=== PATIENT | female | born 1945 | race Caucasian/White ===

== ENCOUNTER 2021-08-04 14:41 | Outpatient (REF) | payer MEDICARE, SELFPAY ==
--- NOTE | ~2021-08-04 | XR_ITS ---
EXAMINATION: XR CHEST CLINICAL INFORMATION: COPD. COMPARISON: None. TECHNIQUE: 2 views of the chest were obtained. FINDINGS: There is no evidence of acute parenchymal disease, pneumothorax, or pleural effusion. Heart normal size. No evidence of pulmonary edema. Thoracic aortic calcification is identified. There is some degenerative spurring seen at multiple levels within the thoracic spine. XR/XR chest 2V IMPRESSION: No acute disease.
== END 2021-08-04 14:42 | disposition home or self-care (01) ==
LOC: HO.XRAY 14:41
PROVIDERS: PCP Registered Nurse; Visit Provider Internal Medicine
DX: J44.9 Chronic obstructive pulmonary disease, unspecified (principal); Z79.899 Other long term (current) drug therapy; Z87.891 Personal history of nicotine dependence
CPT/HCPCS: 71046; 99202

== ENCOUNTER 2021-09-08 13:48 | Outpatient (REF) | payer MEDICARE, SELFPAY ==
--- NOTE | 2021-09-08 17:23 | PFT_ITS ---
Forced vital capacity 64%, FEV1 44%, FEV1/FVC ratio is 51. [id number] 19% and MVV is 38%. Post bronchodilator therapy, there is significant improvement in flow volumes. Total lung capacity 87% and residual volume 117%. Diffusion capacity 29. CONCLUSION: These reserves are consistent with very severe obstructive airway disorder. There is significant response to bronchodilator therapy. These findings are indicative of asthma/COPD overlap syndrome. Clinical correlation is recommended. MD CRESCENCIO Sommer/VINI / [phone]
== END 2021-09-08 13:49 | disposition home or self-care (01) ==
LOC: HO.RESP 13:48
PROVIDERS: PCP Registered Nurse; Visit Provider Internal Medicine
DX: J44.9 Chronic obstructive pulmonary disease, unspecified (principal); R06.00 Dyspnea, unspecified; Z87.891 Personal history of nicotine dependence
CPT/HCPCS: 94060; 94727; 94729; 99212

== ENCOUNTER 2021-09-10 14:58 | Outpatient (REF) | payer MEDICARE, SELFPAY ==
[2021-09-10 16:32] LABS: Folate 19.8 ng/mL (> or = 4.0); Vitamin B12 198 pg/mL (200-900)
[2021-09-15 16:56] LABS: Vitamin D 25-OH, D2 <4 ng/mL; Vitamin D 25-OH, D3 37 ng/mL; Vitamin D 25-OH, Total 37 ng/mL (30-100)
== END 2021-09-10 14:59 | disposition home or self-care (01) ==
LOC: HO.LAB 14:58
PROVIDERS: PCP Registered Nurse; Visit Provider Nurse Practitioner Family
DX: K58.2 Mixed irritable bowel syndrome (principal); R14.0 Abdominal distension (gaseous); R19.7 Diarrhea, unspecified; E55.9 Vitamin D deficiency, unspecified; Z12.11 Encounter for screening for malignant neoplasm of colon
CPT/HCPCS: 36415; 82306; 82607; 82746; 99202; 99212

== ENCOUNTER → 2021-11-10 10:20 | Outpatient (BNVA) | payer MEDICARE, SELFPAY | PROVIDERS: PCP Registered Nurse; Visit Provider Internal Medicine | DX: J44.9 Chronic obstructive pulmonary disease, unspecified (principal) | CPT/HCPCS: 99212 ==

== ENCOUNTER → 2021-11-12 10:43 | Outpatient (BNVA) | payer MEDICARE, SELFPAY | PROVIDERS: PCP Registered Nurse; Visit Provider Nurse Practitioner Family | DX: K58.2 Mixed irritable bowel syndrome (principal); R14.0 Abdominal distension (gaseous) | CPT/HCPCS: 99212 ==

== ENCOUNTER → 2022-02-11 09:09 | Outpatient (BNVA) | payer MEDICARE, SELFPAY | PROVIDERS: PCP Registered Nurse; Visit Provider Nurse Practitioner Family | DX: K58.1 Irritable bowel syndrome with constipation (principal); R14.0 Abdominal distension (gaseous) | CPT/HCPCS: 99212 ==

== ENCOUNTER → 2022-05-11 10:27 | Outpatient (BNVA) | payer MEDICARE, SELFPAY | PROVIDERS: PCP Registered Nurse; Visit Provider Internal Medicine | DX: J44.9 Chronic obstructive pulmonary disease, unspecified (principal); Z87.891 Personal history of nicotine dependence; Z79.899 Other long term (current) drug therapy | CPT/HCPCS: 99212 ==

== ENCOUNTER → 2022-08-12 10:02 | Outpatient (BNVA) | payer MEDICARE, SELFPAY | PROVIDERS: PCP Registered Nurse; Visit Provider Nurse Practitioner Family | DX: K58.1 Irritable bowel syndrome with constipation (principal); K59.01 Slow transit constipation; R14.0 Abdominal distension (gaseous) | CPT/HCPCS: 99212 ==

== ENCOUNTER 2022-11-09 10:57 | Outpatient (AMB) | payer MEDICARE, SELFPAY ==
--- NOTE | 2022-11-09 11:09 | A.OFFVIS_ITS ---
Intake Vital Signs 11/09/22 11:14 Height 5 ft Weight 117 lb BMI 22.8 BP 120/64 Blood Pressure Location Lt brachial Position Sitting Pulse 74 Pulse Source Pulse Oximeter Pulse Oximetry (%) 94 Oxygen Delivery Method Room Air Intake Visit Reasons: copd Intake Note: pt is here for follow up and states she is feeling ok but her inhaler in 42.00, she cannot afford this. Financial Business Analyst Required: No Allergies No Known Allergies Allergy (Verified 11/09/22 16:10) Medication List - Last Reconciled 11/09/22 by Manoj Bernal MD albuterol sulfate 90 mcg/actuation 2 puffs inhalation Q6H PRN calcium carbonate (Calcium) 600 mg PO DAILY cholecalciferol (vitamin D3) 50 mcg PO DAILY cyanocobalamin (vitamin B-12) 1,000 mcg PO DAILY docusate sodium 100 mg PO BEDTIME fluticasone propion-salmeterol 250-50 mcg/dose (Wixela Inhub) 1 inh inhalation BID 30 days folic acid 1 mg PO DAILY garlic 500 mg PO DAILY labetalol 200 mg PO DAILY levothyroxine 50 mcg PO DAILY methylcellulose (laxative) (Citrucel) 500 mg PO DAILY sennosides (Evac-U-Gen (sennosides)) 8.6 mg PO BEDTIME Do you need a note to return to daycare/school/sports/work: No HPI copd HPI Details THIS 77 YEARS OLD VERY PLEASANT FEMALE IS HERE FOR FOLLOW-UP. SHE HAS MILD TO MODERATE DEGREE OF CHRONIC OBSTRUCTIVE PULMONARY DISEASE. BREATHING HAS REMAINED STABLE WITH MILD INTERMITTENT COUGH, AND SHE GETS SHORT OF BREATH ON WALKING FAST OR. CLIMBING STAIRS SHE IS USING AIRDUO 1 INHALATION B.I.D.. THE MAIN ISSUE IS THE HICKEY ( CO-PAYMENT) AND SHE IS LOOKING FOR A CHEAPER BRAND OR SOME OTHER WAY TO CUT DOWN THE COST. SHE IS NONSMOKER. [facility] Social History Household Members: None Alcohol intake: never Patient Tobacco Use Status: Former Tobacco user Review of Systems Const All systems reviewed & are unremarkable except as noted in HPI and below Eyes Reports no additional complaints ENT Reports no additional complaints Card Denies chest pain, Denies irregular heart rhythm and Denies leg edema Resp Reports as per HPI GI Reports no additional complaints Reports no additional complaints Skin/Breast Reports system reviewed and no additional complaints, except as documented Neuro Reports no additional complaints Psych Reports no additional complaints Physical Exam Vital Signs: Last Vital Signs Pulse 74 11/09/22 11:14 BP 120/64 11/09/22 11:14 Pulse Ox 94 11/09/22 11:14 Oxygen Delivery Method Room Air 11/09/22 11:14 BMI result Body Mass Index 22.8 Const General: healthy appearing, comfortable, no acute distress, alert and awake Orientation/consciousness: patient oriented x3 HEENT Head: Yes normal to inspection General nose exam: No nasal polyps present and No nasal discharge present Face and sinus: Yes sinuses nontender Mouth: oropharynx normal Teeth and gingiva: dentures (Upper dentures) Throat: Yes posterior oropharynx normal Eyes General: appearance normal, both eyes and all related structures Neck Neck: Yes normal visual inspection, Yes no lymphadenopathy, Yes trachea midline and Yes no JVD Thyroid: Thyroid normal Chest Chest palpation & inspection: normal inspection of the chest, normal palpation of entire chest wall and no tenderness Resp Other: Percussion note is resonant, breath sounds are distant but equal on both sides with prolonged expiratory phase. No wheezes or rhonchi are heard. Cardio Palpation: normal PMI Rate: regular rate Rhythm: regular rhythm Heart sounds: no gallops and no murmurs GI Palpation (GI): Soft to palpation, nontender, No hepatosplenomegaly present and no masses Auscultation: normal bowel sounds Back/Spine/Pelvis Thoracic/Lumbar Spine: thoracic and lumbar spine normal to inspection Skin General skin exam: no rashes or lesions noted Neuro General: patient oriented x3 and no focal motor deficits Cranial nerves: Yes CN's II-XII intact bilaterally Extrem General: Yes normal to inspection, Yes no clubbing, cyanosis or edema and Yes no calf tenderness Psych Appearance: grossly normal and well kempt Speech and movement: Normal speech and movement present Assessment & Plan Assessment & Plan (1) COPD (chronic obstructive pulmonary disease): Comment: Patient has been treated for chronic obstructive pulmonary disease for the last 10-12 years. Clinically seems to be mild to moderate. and seems to be well controlled at this time. PULMONARY FUNCTION TEST showed rather severe chronic obstructive pulmonary disease, with good response to bronchodilators [place]: Proair HFA 2 puffs Q 4-6 hours p.r.n.. WILL START HER ON A NEBULIZER AND USE DUONEB SOLUTION IN THE NEBULIZER 3 TIMES A DAY. THIS MAY BE COVERED BY HER INSURANCE COMPLETELY. Code(s): J44.9 - Chronic obstructive pulmonary disease, unspecified Coding Level of Care Code Est Pt Level 3 (02195) Diagnoses COPD (chronic obstructive pulmonary disease) J44.9
[2022-11-09 11:14] VITALS: BP 120/64; PULSE 74; O2SAT 94; BMI 22.8
== END 2022-11-09 11:45 | disposition home or self-care (01) ==
PROVIDERS: PCP Registered Nurse; Visit Provider Internal Medicine
DX: J44.9 Chronic obstructive pulmonary disease, unspecified (principal)
CPT/HCPCS: 99213

== ENCOUNTER → 2022-11-09 10:57 | Outpatient (BNVA) | payer MEDICARE, SELFPAY | PROVIDERS: Visit Provider Internal Medicine | DX: J44.9 Chronic obstructive pulmonary disease, unspecified (principal) | CPT/HCPCS: 99212 ==

== ENCOUNTER 2023-08-25 13:46 | Outpatient (AMB) | payer MEDICARE, SELFPAY ==
--- NOTE | 2023-08-25 13:52 | A.OFFVIS_ITS ---
Vital Signs 08/25/23 14:00 Height 5 ft Weight 113 lb 5.082 oz BMI 22.1 BP 196/88 H Blood Pressure Location Rt brachial Position Sitting Pulse 74 Pulse Source Pulse Oximeter Pulse Oximetry (%) 92 Oxygen Delivery Method Room Air Intake Visit Reasons: r/s from 08/13/23 1 yr follow up Intake Note: Candi presents in office today for a scheduled 1 year FUV. CC; Pt reports that they have been struggling with diarrhea over the course of the last month. Pt denies any additional concerns or sx at this time. Study Assistant Required: No Allergies No Known Allergies Allergy (Verified 08/25/23 15:17) HPI HPI r/s from 08/13/23 1 yr follow up: Details: LAST VISIT IBS (irritable bowel syndrome) Occasional abdominal bloating. Patient is taking Senokot and Colace and reports that she is moving her bowels better. Continue low FODMAP diet. Abdominal bloating Low FODMAP diet. May use simethicone on as needed basis Constipation Continue Senokot and Colace. Patient was encouraged to increase fluid intake and activity to promote better bowel motility. I will see patient in 1 year, sooner on as needed basis. Patient is agreeable to plan and verbalizes understanding of instructions. She was given the opportunity to ask questions and all questions answered. ? Thank you for allowing me to participate in her care Plan Medications Refilled sennosides (Evac-U-Gen (sennosides)) 8.6 mg PO BEDTIME 90 tabs 3RF docusate sodium 100 mg PO BEDTIME 90 caps 3RF K59.00 - Constipation, unspecified TODAY'S VISIT Patient is here today for follow-up. Patient reports that she has not having multiple episodes of loose stools. Patient admits that she is very anxious as she lost her PCP. Patient's PCP was not taking her insurance anymore. Patient has been having more respiratory issues, unable to get her corticosteroid inhalers and only able to do nebulizer treatments. Patient is having more trouble in this weather with breathing. Has appointment with her soldering machine operator automatic today. Patient denies any nausea or vomiting. Denies melena, hematochezia, unintentional weight loss or ribbon like stools. [facility] Medical History COPD (chronic obstructive pulmonary disease) Hypothyroid Social History Household Members: None Alcohol intake: never Patient Tobacco Use Status: Former Tobacco user Review of Systems Const Denies weight gain and Denies weight loss ENT Reports no additional complaints, Denies dysphagia and Denies odynophagia Card Reports no additional complaints Resp Reports no additional complaints GI Denies abdominal pain, Denies belching, Denies melena, Denies bloating, Denies change in bowel habits, Denies dysphagia, Denies excessive flatus, Denies dyspepsia, Denies heartburn, Denies diarrhea, Denies loose stools, Denies nausea, Denies odynophagia and Denies vomiting Reports no additional complaints Musc Reports no additional complaints Neuro Reports no additional complaints Psych Reports no additional complaints Endo Reports no additional complaints Physical Exam Vital Signs: Last Vital Signs Pulse 74 08/25/23 14:00 BP 196/88 H 08/25/23 14:00 Pulse Ox 92 08/25/23 14:00 Oxygen Delivery Method Room Air 08/25/23 14:00 BMI result Body Mass Index 22.1 Const General: healthy appearing, no acute distress and well developed Nutritional Appearance: well nourished Orientation/consciousness: patient oriented x3 Resp Effort & Inspection: normal respiratory effort, able to speak in complete sentences, no tracheal deviation and symmetric chest movement Auscultation: clear to auscultation bilaterally Cardio Rate: regular rate GI Inspection: Yes normal to inspection and No distended Palpation (GI): Soft to palpation, not firm, nontender and No hepatosplenomegaly present Auscultation: normal bowel sounds General: Yes no CVA tenderness Back/Spine/Pelvis Back: no CVA tenderness Skin General skin exam: elasticity normal, turgor normal and dry skin Neuro General: patient oriented x3 Psych Appearance: grossly normal Mental Status: mental status grossly normal Assessment & Plan Assessment & Plan (1) IBS (irritable bowel syndrome): Code(s): K58.9 - Irritable bowel syndrome without diarrhea Qualifiers: Irritable bowel syndrome type: with both diarrhea and constipation Qualified Code(s): K58.2 - Mixed irritable bowel syndrome (2) Abdominal bloating: Code(s): R14.0 - Abdominal distension (gaseous) (3) Constipation: Code(s): K59.00 - Constipation, unspecified Qualifiers: Constipation type: slow transit constipation Qualified Code(s): K59.01 - Slow transit constipation (4) Diarrhea: Code(s): R19.7 - Diarrhea, unspecified Qualifiers: Diarrhea type: functional diarrhea Qualified Code(s): K59.1 - Functional diarrhea Plan Patient will increase fiber intake. May take Senokot at bedtime on as needed basis if no BM in 2-3 days. Patient will speak to her soldering machine operator automatic today about not being able to afford corticosteroid inhalers. Patient will follow-up in the office in 4 months, sooner on as needed basis. She is agreeable to this plan and verbalizes understanding of instructions. She was given the opportunity to ask questions and all questions answered. Thank you for allowing me to participate in her care Coding Level of Care Code Est Pt Level 3 (91256) Diagnoses Irritable bowel syndrome with both constipation and diarrhea K58.2 Irritable bowel syndrome type: with both diarrhea and constipation Abdominal bloating R14.0 Slow transit constipation K59.01 Constipation type: slow transit constipation Functional diarrhea K59.1 Diarrhea type: functional diarrhea Time Spent (min) 25 Comment 15 minutes spent with patient and additional 10 minutes spent reviewing her records
[2023-08-25 14:00] VITALS: BP 196/88; PULSE 74; O2SAT 92; BMI 22.1
== END 2023-08-25 14:42 | disposition home or self-care (01) ==
PROVIDERS: PCP Registered Nurse; Visit Provider Nurse Practitioner Family
DX: K58.2 Mixed irritable bowel syndrome (principal); R14.0 Abdominal distension (gaseous); K59.01 Slow transit constipation; K59.1 Functional diarrhea
CPT/HCPCS: 99213

== ENCOUNTER → 2023-08-25 13:46 | Outpatient (BNVA) | payer MEDICARE, SELFPAY | PROVIDERS: PCP Registered Nurse; Visit Provider Nurse Practitioner Family | DX: J44.9 Chronic obstructive pulmonary disease, unspecified (principal); K58.2 Mixed irritable bowel syndrome; R14.0 Abdominal distension (gaseous); K59.01 Slow transit constipation; K59.1 Functional diarrhea | CPT/HCPCS: 99212 ==

== ENCOUNTER 2023-08-25 14:34 | Outpatient (AMB) | payer MEDICARE, SELFPAY ==
--- NOTE | 2023-08-25 14:47 | MHC.OFFVIS ---
Vital Signs 08/25/23 14:49 Height 5 ft Weight 113 lb BMI 22.1 BP 120/62 Blood Pressure Location Lt brachial Position Sitting Pulse 71 Pulse Source Pulse Oximeter Pulse Oximetry (%) 90 L Oxygen Delivery Method Room Air Intake Visit Reasons: COPD Intake Note: pt is here for a visit due to increase shortness of breath, mostly outside, the nebulizer helps, she is using tid. but she just does not feel well. Accountant Assistant Required: No Allergies No Known Allergies Allergy (Verified 08/25/23 15:17) Medication List - Last Reconciled 08/25/23 by Manoj Bernal MD albuterol sulfate 90 mcg/actuation 2 puffs inhalation Q6H PRN calcium carbonate (Calcium 600) 600 mg PO DAILY cholecalciferol (vitamin D3) 50 mcg PO DAILY cyanocobalamin (vitamin B-12) 1,000 mcg PO DAILY docusate sodium 100 mg PO BEDTIME folic acid 0.8 mg PO DAILY garlic 500 mg PO DAILY ipratropium-albuterol 0.5 mg-3 mg(2.5 mg base)/3 mL 3 mL inhalation TID labetalol 200 mg PO DAILY latanoprost 0.005% drps ophthalmic (eye) levothyroxine mcg PO methylcellulose (laxative) (Citrucel) 500 mg PO DAILY sennosides (Evac-U-Gen (sennosides)) 8.6 mg PO BEDTIME timolol maleate 0.5% drps ophthalmic (eye) Do you need a note to return to daycare/school/sports/work: No HPI HPI COPD: Details: REGINA IS 77 YEARS OLD VERY ACTIVE AND PLEASANT LADY, WHO QUIT SMOKING 12 YEARS AGO. DOES HAVE CHRONIC OBSTRUCTIVE PULMONARY DISEASE. SHE HAS NOT BEEN ABLE TO USE LONG-ACTING AGENTS BECAUSE OF HICKEY AND CO-PAYMENT ISSUE. SHE DOES HAVE IPRATROPIUM-ALBUTEROL SOLUTION AT HOME WITH THE NEBULIZER. WHICH SHE HAS BEEN USING 3 TIMES A DAY. 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 SHE COMPLAINS OF FREQUENT BOUTS OF WHEEZING AND GETTING SHORT OF BREATH ON MINIMAL WALKING, ESPECIALLY IN HOT AND HUMID WEATHER. THEN SHE ENDS UP USING ALBUTEROL INHALER MORE FREQUENTLY. SHE HAS HAD NO RECENT RESPIRATORY INFECTIONS. [facility] Medical History COPD (chronic obstructive pulmonary disease) Hypothyroid Social History Household Members: None Alcohol intake: never Patient Tobacco Use Status: Former Tobacco user Review of Systems Const All systems reviewed & are unremarkable except as noted in HPI and below Eyes Reports no additional complaints ENT Reports no additional complaints Card Denies chest pain, Denies irregular heart rhythm and Denies leg edema Resp Reports as per HPI GI Reports no additional complaints Reports no additional complaints Skin/Breast Reports system reviewed and no additional complaints, except as documented Neuro Reports no additional complaints Psych Reports no additional complaints Physical Exam Vital Signs: Last Vital Signs Pulse 71 08/25/23 14:49 BP 120/62 08/25/23 14:49 Pulse Ox 90 L 08/25/23 14:49 Oxygen Delivery Method Room Air 08/25/23 14:49 BMI result Body Mass Index 22.1 Const General: healthy appearing, comfortable, no acute distress, alert and awake Orientation/consciousness: patient oriented x3 HEENT Head: Yes normal to inspection General nose exam: No nasal polyps present and No nasal discharge present Face and sinus: Yes sinuses nontender Mouth: oropharynx normal Teeth and gingiva: dentures (Upper dentures) Throat: Yes posterior oropharynx normal Eyes General: appearance normal, both eyes and all related structures Neck Neck: Yes normal visual inspection, Yes no lymphadenopathy, Yes trachea midline and Yes no JVD Thyroid: Thyroid normal Chest Chest palpation & inspection: normal inspection of the chest, normal palpation of entire chest wall and no tenderness Resp Other: Percussion note is resonant, breath sounds are distant but equal on both sides with prolonged expiratory phase. No wheezes or rhonchi are heard. Cardio Palpation: normal PMI Rate: regular rate Rhythm: regular rhythm Heart sounds: no gallops and no murmurs GI Palpation (GI): Soft to palpation, nontender, No hepatosplenomegaly present and no masses Auscultation: normal bowel sounds Back/Spine/Pelvis Thoracic/Lumbar Spine: thoracic and lumbar spine normal to inspection Skin General skin exam: no rashes or lesions noted Neuro General: patient oriented x3 and no focal motor deficits Cranial nerves: Yes CN's II-XII intact bilaterally Extrem General: Yes normal to inspection, Yes no clubbing, cyanosis or edema and Yes no calf tenderness Psych Appearance: grossly normal and well kempt Speech and movement: Normal speech and movement present Assessment & Plan Assessment & Plan (1) COPD (chronic obstructive pulmonary disease): Comment: Patient has been treated for chronic obstructive pulmonary disease for the last 10-12 years. Clinically seems to be mild to moderate. and seems to be well controlled at this time. PULMONARY FUNCTION TEST showed rather severe chronic obstructive pulmonary disease, with good response to bronchodilators Code(s): J44.9 - Chronic obstructive pulmonary disease, unspecified Category: Medical Plan: [place]: Proair HFA 2 puffs Q 4-6 hours p.r.n.. When outdoors. At home use ipratropium-albuterol solution in the nebulizer Q 6 hours as needed ( up to 3 times a day) She will benefit from a LABA/ICS . AGENT AFFORDABILITY OF THE INHALERS HAS BEEN AN ISSUE. . I AM GOING TO PRESCRIBE AIRDUO . TO USE 1 INHALATION B.I.D.. WILL GIVE HER A COUPON FROM THE OFFICE WITH WHICH SHE WILL BE GETTING AIRDUO AT A REDUCED CO-PAYMENT PLAN. Coding Level of Care Code Est Pt Level 3 (02983) Diagnoses COPD (chronic obstructive pulmonary disease) J44.9
[2023-08-25 14:49] VITALS: BP 120/62; PULSE 71; O2SAT 90; BMI 22.1
== END 2023-08-25 15:18 | disposition home or self-care (01) ==
PROVIDERS: PCP Registered Nurse; Visit Provider Internal Medicine
DX: J44.9 Chronic obstructive pulmonary disease, unspecified (principal)
CPT/HCPCS: 99213

== ENCOUNTER 2023-11-30 10:25 | Outpatient (AMB) | payer MEDICARE, SELFPAY ==
[2023-11-30 10:42] VITALS: BP 130/60; PULSE 65; O2SAT 94; BMI 21.7
--- NOTE | 2023-11-30 10:42 | A.OFFVIS_ITS ---
Vital Signs 11/30/23 10:42 Height 5 ft Weight 111 lb 5.335 oz BMI 21.7 BP 130/60 Blood Pressure Location Lt brachial Position Sitting Pulse 65 Pulse Source Pulse Oximeter Pulse Oximetry (%) 94 Oxygen Delivery Method Room Air Intake Visit Reasons: COPD Intake Note: pt is here for follow up and states her breathing is not good, up all night with a wheeze which she is waking up, she is using a nebulizer which she does get a lot of phlegm. Stadium Manager Required: No Allergies No Known Allergies Allergy (Verified 11/30/23 11:07) Medication List - Last Reconciled 11/30/23 by Manoj Bernal MD albuterol sulfate 90 mcg/actuation 2 puffs inhalation Q6H PRN calcium carbonate (Calcium 600) 600 mg PO DAILY cholecalciferol (vitamin D3) 50 mcg PO DAILY cyanocobalamin (vitamin B-12) 1,000 mcg PO DAILY docusate sodium 100 mg PO BEDTIME fluticasone propion-salmeterol 232-14 mcg/actuation 1 inh inhalation BID 30 days folic acid 0.8 mg PO DAILY garlic 500 mg PO DAILY ipratropium-albuterol 0.5 mg-3 mg(2.5 mg base)/3 mL 3 mL inhalation TID labetalol 200 mg PO DAILY latanoprost 0.005% drps ophthalmic (eye) levothyroxine mcg PO methylcellulose (laxative) (Citrucel) 1,000 mg (2 x 500 mg) PO DAILY sennosides (Evac-U-Gen (sennosides)) 8.6 mg PO BEDTIME timolol maleate 0.5% drps ophthalmic (eye) Do you need a note to return to daycare/school/sports/work: No HPI HPI COPD: Details: This 78 years old very pleasant female is here for follow-up after 6 months. SHE QUIT SMOKING ABOUT 13 YEARS AGO. SHE DOES HAVE MODERATELY SEVERE OBSTRUCTIVE AIRWAY DISORDER AND GETS SHORT OF BREATH ON MINIMAL EXERTION. SHE HAS INTERMITTENT COUGH, AND SOME WHEEZING DURING THE NIGHTTIME. SHE DOES HAVE THE NEBULIZER AT HOME WITH DUONEB SOLUTION AND ALSO HAS ADVAIR HFA 232-14 THAT SHE USES 1 INHALATION TWICE A DAY. DOES NOT HAVE A RESCUE INHALER AT THIS TIME. HER MAIN COMPLAINT CONTINUES TO BE LOT OF CO-PAYMENTS THAT SHE HAS HARD TIME TO AFFORD . SHE IS NOT USING HER NEBULIZER ON A DAILY BASIS. [facility] Medical History COPD (chronic obstructive pulmonary disease) Hypothyroid Social History Household Members: None Alcohol intake: never Patient Tobacco Use Status: Former Tobacco user Review of Systems Const All systems reviewed & are unremarkable except as noted in HPI and below Eyes Reports no additional complaints ENT Reports no additional complaints Card Denies chest pain, Denies irregular heart rhythm and Denies leg edema Resp Reports as per HPI GI Reports no additional complaints Reports no additional complaints Skin/Breast Reports system reviewed and no additional complaints, except as documented Neuro Reports no additional complaints Psych Reports no additional complaints Physical Exam Vital Signs: Last Vital Signs Pulse 65 11/30/23 10:42 BP 130/60 11/30/23 10:42 Pulse Ox 94 11/30/23 10:42 Oxygen Delivery Method Room Air 11/30/23 10:42 BMI result Body Mass Index 21.7 Const General: healthy appearing, comfortable, no acute distress, alert and awake Orientation/consciousness: patient oriented x3 HEENT Head: Yes normal to inspection General nose exam: No nasal polyps present and No nasal discharge present Face and sinus: Yes sinuses nontender Mouth: oropharynx normal Teeth and gingiva: dentures (Upper dentures) Throat: Yes posterior oropharynx normal Eyes General: appearance normal, both eyes and all related structures Neck Neck: Yes normal visual inspection, Yes no lymphadenopathy, Yes trachea midline and Yes no JVD Thyroid: Thyroid normal Chest Chest palpation & inspection: normal inspection of the chest, normal palpation of entire chest wall and no tenderness Resp Other: Percussion note is resonant, breath sounds are distant but equal on both sides with prolonged expiratory phase. No wheezes or rhonchi are heard. Cardio Palpation: normal PMI Rate: regular rate Rhythm: regular rhythm Heart sounds: no gallops and no murmurs GI Palpation (GI): Soft to palpation, nontender, No hepatosplenomegaly present and no masses Auscultation: normal bowel sounds Back/Spine/Pelvis Thoracic/Lumbar Spine: thoracic and lumbar spine normal to inspection Skin General skin exam: no rashes or lesions noted Neuro General: patient oriented x3 and no focal motor deficits Cranial nerves: Yes CN's II-XII intact bilaterally Extrem General: Yes normal to inspection, Yes no clubbing, cyanosis or edema and Yes no calf tenderness Psych Appearance: grossly normal and well kempt Speech and movement: Normal speech and movement present Assessment & Plan Assessment & Plan (1) COPD (chronic obstructive pulmonary disease): Comment: Patient has been treated for chronic obstructive pulmonary disease for the last 10-12 years. Clinically seems to be mild to moderate. and seems to be well controlled at this time. PULMONARY FUNCTION TEST showed rather severe chronic obstructive pulmonary disease, with good response to bronchodilators Code(s): J44.9 - Chronic obstructive pulmonary disease, unspecified Category: Medical Plan: ONCE AGAIN EXPLAINED ABOUT COPD . ADVISED TO CONTINUE USING FLUTICASONE PROPIONATE NON-SALMETEROL 232-14 1 INHALATION B.I.D.. ALSO USE IPRATROPIUM-ALBUTEROL SOLUTION IN THE NEBULIZER AT LEAST TWICE A DAY. ALBUTEROL HFA 2 PUFFS Q 6 HOURS P.R.N. RESCUE INHALER WHEN SHE GOES OUTDOORS.( PRESCRIBED AND ALSO GIVEN A WHEELCHAIR FOR DISCOUNT) Medications: New albuterol sulfate 90 mcg/actuation (Proair Digihaler) 1 inh inhalation Q4-6H 30 days PRN 1 ea 5RF shortness of breath or wheezing Coding Level of Care Code Est Pt Level 3 (28615) Diagnoses COPD (chronic obstructive pulmonary disease) J44.9
== END 2023-11-30 11:08 | disposition home or self-care (01) ==
PROVIDERS: PCP Registered Nurse; Visit Provider Internal Medicine
DX: J44.9 Chronic obstructive pulmonary disease, unspecified (principal)
CPT/HCPCS: 99213

== ENCOUNTER → 2023-11-30 10:25 | Outpatient (BNVA) | payer MEDICARE, SELFPAY | PROVIDERS: PCP Registered Nurse; Visit Provider Internal Medicine | DX: J44.9 Chronic obstructive pulmonary disease, unspecified (principal) | CPT/HCPCS: 99212 ==

== ENCOUNTER 2023-12-14 11:44 | Outpatient (AMB) | payer MEDICARE, SELFPAY ==
[2023-12-14 11:45] VITALS: BP 144/64; PULSE 74; O2SAT 94; BMI 21.6
--- NOTE | 2023-12-14 11:45 | A.OFFVIS_ITS ---
Vital Signs 12/14/23 11:45 Height 5 ft Weight 110 lb 10.753 oz BMI 21.6 BP 144/64 H Blood Pressure Location Rt brachial Position Sitting Pulse 74 Pulse Source Pulse Oximeter Pulse Oximetry (%) 94 Oxygen Delivery Method Room Air Intake Visit Reasons: 4 month follow up Intake Note: Relevant Flags or Indicators ? 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 N Candi presents in office today for a scheduled 4 mos FUV. CC; No recent labs, diagnostics, or med orders placed. ? Relevant GI Sx as reported per pt? Fecal abnormalities o?? Discolored? Pt reporting intermittent hematochezia which they believe is related to hemorrhoids. o?? Constipation o?? Diarrhea ? Abdominal Pain * Upper B/L - Cramping. ? Hx of any recent surgeries? None Pt states that she is unable to get her normal medications because she is between PCPs at the moment. Pt has been having to go to urgent care to receive their medication refills because their new PCP will not refill it until they have their initial visit. Electrical Engineering Intern Required: No Allergies No Known Allergies Allergy (Verified 12/14/23 11:46) HPI HPI 4 month follow up: Details: LAST VISIT Patient is here today for follow-up. Patient reports that for the most part she has been doing well. Patient is little stressed as she has to keep going to urgent care to get her normal medications filled like her blood pressure medication and in her thyroid medicine. Patient states that she is in between her PCP's and does not have appointment until next year with her new PCP. Patient does not want to choose anyone else as she and her best friend will share ride to go to the appointments. Patient is asking for refill for her thyroid medicine today for 1 month at least until she can see her PCP. Patient reports occasional postprandial abdominal bloating and cramping. Patient tries to eat food and avoid certain dietary triggers. Patient denies any melena or hematochezia, however sometimes after bowel movements specially when she is constipated she might see small amount of blood on the tissue when wiping. Patient nausea or vomiting. Denies dyspepsia dysphagia or odynophagia PFSH Medical History COPD (chronic obstructive pulmonary disease) Hypothyroid Social History Household Members: None Alcohol intake: never Patient Tobacco Use Status: Former Tobacco user Review of Systems Const Denies weight gain and Denies weight loss ENT Reports no additional complaints, Denies dysphagia and Denies odynophagia Card Reports no additional complaints Resp Reports no additional complaints GI Reports abdominal pain (Cramping), Denies belching, Denies melena, Reports bloating, Denies change in bowel habits, Reports constipation, Denies dysphagia, Denies excessive flatus, Denies dyspepsia, Denies heartburn, Denies diarrhea, Denies loose stools, Denies nausea, Denies odynophagia and Denies vomiting Musc Reports no additional complaints Neuro Reports no additional complaints Psych Reports no additional complaints Endo Reports no additional complaints Physical Exam Vital Signs: Last Vital Signs Pulse 74 12/14/23 11:45 BP 144/64 H 12/14/23 11:45 Pulse Ox 94 12/14/23 11:45 Oxygen Delivery Method Room Air 12/14/23 11:45 BMI result Body Mass Index 21.6 Const General: healthy appearing, no acute distress and well developed Nutritional Appearance: well nourished Orientation/consciousness: patient oriented x3 Resp Effort & Inspection: normal respiratory effort, able to speak in complete sentences, no tracheal deviation and symmetric chest movement Auscultation: clear to auscultation bilaterally Cardio Rate: regular rate GI Inspection: Yes normal to inspection and No distended Palpation (GI): Soft to palpation, not firm, nontender and No hepatosplenomegaly present Auscultation: normal bowel sounds General: Yes no CVA tenderness Back/Spine/Pelvis Back: no CVA tenderness Skin General skin exam: elasticity normal, turgor normal and dry skin Neuro General: patient oriented x3 Psych Appearance: grossly normal Mental Status: mental status grossly normal Assessment & Plan Assessment & Plan (1) IBS (irritable bowel syndrome): Code(s): K58.9 - Irritable bowel syndrome, unspecified Qualifiers: Irritable bowel syndrome type: with both diarrhea and constipation Qualified Code(s): K58.2 - Mixed irritable bowel syndrome (2) Abdominal bloating: Code(s): R14.0 - Abdominal distension (gaseous) (3) Constipation: Code(s): K59.00 - Constipation, unspecified Qualifiers: Constipation type: slow transit constipation Qualified Code(s): K59.01 - Slow transit constipation (4) Diarrhea: Code(s): R19.7 - Diarrhea, unspecified Qualifiers: Diarrhea type: functional diarrhea Qualified Code(s): K59.1 - Functional diarrhea Plan Avoid dietary triggers. Increase fiber and fluid intake. May take xyso-sya-hcvqoyg probiotics. Take fiber supplements in addition if she continues to have loose stools. May use senna on as-needed basis if no bowel movement for 2-3 days. Follow-up in 6 months. Patient will call our office if she will experience any GI concerning symptoms. She is agreeable to current plan of care and verbalizes understanding of instructions. She was given the opportunity to ask questions and all questions answered. Thank you for allowing me to participate in her care Orders: Orders Complete Blood Count no Diff 12/14/23 K21.9 - Gastro-esophageal reflux disease without esophagitis TSH reflex Free T4 12/14/23 K59.00 - Constipation, unspecified Vitamin D 25-OH (D2 and D3) 12/14/23 E55.9 - Vitamin D deficiency, unspecified Comprehensive Met. Panel 12/14/23 K21.9 - Gastro-esophageal reflux disease without esophagitis Medications: Changed From levothyroxine PO To levothyroxine 88 mcg PO DAILY 30 tabs 0RF Refilled docusate sodium 100 mg PO BEDTIME 90 caps 3RF K59.00 - Constipation, unspecified Coding Level of Care Code Est Pt Level 3 (06558) Diagnoses Irritable bowel syndrome with both constipation and diarrhea K58.2 Irritable bowel syndrome type: with both diarrhea and constipation Abdominal bloating R14.0 Slow transit constipation K59.01 Constipation type: slow transit constipation Functional diarrhea K59.1 Diarrhea type: functional diarrhea Time Spent (min) 25 Comment 15 minutes spent with patient and additional 10 minutes spent reviewing her records
== END 2023-12-14 12:19 | disposition home or self-care (01) ==
LOC: HO.HGI 11:45
PROVIDERS: PCP Registered Nurse; Visit Provider Nurse Practitioner Family
DX: K58.2 Mixed irritable bowel syndrome (principal); R14.0 Abdominal distension (gaseous); K59.01 Slow transit constipation; K59.1 Functional diarrhea
CPT/HCPCS: 99213

== ENCOUNTER 2023-12-14 11:44 | Outpatient (REF) | payer MEDICARE, SELFPAY ==
[2023-12-14 13:49] LABS: Hematocrit 39.5 % (37.0-47.0); Hemoglobin 12.7 g/dl (12.0-16.0); Mean Corpuscular HGB Conc 32.2 g/dl (31.0-35.0); Mean Corpuscular Hemoglobin 28.7 pg (27.0-33.0); Mean Corpuscular Volume 89.4 fL (80.0-98.0); Mean Platelet Volume 10.3 fL (9.4-12.3); Platelet Count 333 X10*3/uL (160-400); Red Blood Count 4.42 X10*6/uL (4.20-5.50); Red Cell Distribution Width 12.4 % (11.0-16.0); White Blood Count 10.5 X10*3/uL (4.8-10.8)
[2023-12-14 14:52] LABS: Alanine Aminotransferase 11 U/L (0-31); Albumin Level 3.7 g/dL (3.5-5.0); Alkaline Phosphatase 139 U/L (39-117); Anion Gap 14 (12-20); Aspartate Amino Transferase 18 U/L (5-31); Bilirubin Total 0.5 mg/dL (0.0-1.0); Blood Urea Nitrogen 8 mg/dL (9-16); Calcium 9.9 mg/dL (8.4-10.2); Carbon Dioxide 28 mmol/L (22-29); Chloride 103 mmol/L (96-108); Estimated Glomerular Filt Rate > 60; Glucose Random 109 mg/dL (60-115); Potassium 3.4 mmol/L (3.3-5.1); Sodium 142 mmol/L (135-145); Total Protein 6.5 g/dL (6.5-8.0)
[2023-12-14 14:58] LABS: TSH reflex Free T4 2.42 uIU/mL (0.32-4.0)
[2023-12-18 17:59] LABS: Vitamin D 25-OH, D2 <4 ng/mL; Vitamin D 25-OH, D3 34 ng/mL; Vitamin D 25-OH, Total 34 ng/mL (30-100)
== END 2023-12-14 11:45 | disposition home or self-care (01) ==
LOC: HO.LAB 11:44
PROVIDERS: PCP Registered Nurse; Visit Provider Nurse Practitioner Family
DX: K21.9 Gastro-esophageal reflux disease without esophagitis (principal); K59.01 Slow transit constipation; E55.9 Vitamin D deficiency, unspecified; K58.2 Mixed irritable bowel syndrome; R14.0 Abdominal distension (gaseous)
CPT/HCPCS: 36415; 80053; 82306; 84443; 85027; 99212

== ENCOUNTER 2024-05-30 10:16 | Outpatient (AMB) | payer MEDICARE, SELFPAY ==
[2024-05-30 10:23] VITALS: BP 102/58; PULSE 68; O2SAT 94; BMI 22.2
--- NOTE | 2024-05-30 10:23 | MHC.OFFVIS ---
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 Allergies No Known Allergies Allergy (Verified 05/30/24 10:46) Medication List - Last Reconciled 05/30/24 by Manoj Bernal MD albuterol sulfate 90 mcg/actuation 2 puffs inhalation Q4-6H PRN azelastine-fluticasone 137-50 mcg/spray 1 spray intranasal BID cholecalciferol (vitamin D3) 50 mcg PO DAILY cyanocobalamin (vitamin B-12) 1,000 mcg PO DAILY docusate sodium 100 mg PO BEDTIME pqnlvzjypkt-uzmgvaylk-ssyralsk 200-62.5-25 mcg (Trelegy Ellipta) 1 inh inhalation DAILY labetalol 200 mg PO DAILY latanoprost 0.005% drps ophthalmic (eye) levothyroxine 88 mcg PO DAILY methylcellulose (laxative) (Citrucel) 1,000 mg (2 x 500 mg) PO DAILY ramipril 5 mg PO DAILY rosuvastatin 20 mg PO DAILY sennosides (Evac-U-Gen (sennosides)) 8.6 mg PO BEDTIME timolol maleate 0.5% drps ophthalmic (eye) Do you need a note to return to daycare/school/sports/work: No HPI HPI COPD: Details: REGINA is 78 years old female with longstanding history of chronic obstructive pulmonary disease and mild allergic rhinitis. She is coming for follow-up after 6 months. Lately she has been provided with Trelegy Ellipta 1 inhalation daily, as a sample from her PCPs office. With this agent she is feeling much better and does not need to use the rescue inhalers as much. She does have Ventolin HFA on hand but hardly has used. She has stopped using the Symbicort. She is a former smoker, having quit many years ago, and does not have any urge to smoke at present. ON LICENSE OF [facility] Medical History COPD (chronic obstructive pulmonary disease) Hypothyroid Social History Household Members: None Alcohol intake: never Patient Tobacco Use Status: Former Tobacco user Review of Systems Const All systems reviewed & are unremarkable except as noted in HPI and below Eyes Reports no additional complaints ENT Reports no additional complaints Card Denies chest pain, Denies irregular heart rhythm and Denies leg edema Resp Reports as per HPI GI Reports no additional complaints Reports no additional complaints Skin/Breast Reports system reviewed and no additional complaints, except as documented Neuro Reports no additional complaints Psych Reports no additional complaints Physical Exam Vital Signs: Last Vital Signs Pulse 68 05/30/24 10:23 BP 102/58 L 05/30/24 10:23 Pulse Ox 94 05/30/24 10:23 Oxygen Delivery Method Room Air 05/30/24 10:23 BMI result Body Mass Index 22.2 Const General: healthy appearing, comfortable, no acute distress, alert and awake Orientation/consciousness: patient oriented x3 HEENT Head: Yes normal to inspection General nose exam: No nasal polyps present and No nasal discharge present Face and sinus: Yes sinuses nontender Mouth: oropharynx normal Teeth and gingiva: dentures (Upper dentures) Throat: Yes posterior oropharynx normal Eyes General: appearance normal, both eyes and all related structures Neck Neck: Yes normal visual inspection, Yes no lymphadenopathy, Yes trachea midline and Yes no JVD Thyroid: Thyroid normal Chest Chest palpation & inspection: normal inspection of the chest, normal palpation of entire chest wall and no tenderness Resp Other: Percussion note is resonant, breath sounds are distant but equal on both sides with prolonged expiratory phase. No wheezes or rhonchi are heard. Cardio Palpation: normal PMI Rate: regular rate Rhythm: regular rhythm Heart sounds: no gallops and no murmurs GI Palpation (GI): Soft to palpation, nontender, No hepatosplenomegaly present and no masses Auscultation: normal bowel sounds Back/Spine/Pelvis Thoracic/Lumbar Spine: thoracic and lumbar spine normal to inspection Skin General skin exam: no rashes or lesions noted Neuro General: patient oriented x3 and no focal motor deficits Cranial nerves: Yes CN's II-XII intact bilaterally Extrem General: Yes normal to inspection, Yes no clubbing, cyanosis or edema and Yes no calf tenderness Psych Appearance: grossly normal and well kempt Speech and movement: Normal speech and movement present Assessment & Plan Assessment & Plan (1) COPD (chronic obstructive pulmonary disease): Comment: Patient has been treated for chronic obstructive pulmonary disease for the last 10-12 years. PULMONARY FUNCTION TEST showed rather severe chronic obstructive pulmonary disease, with good response to bronchodilators. She was using Symbicort 160-4.52 puffs b.i.d., But recently has been provided by her PCP. with a sample of Trelegy Ellipta to use 1 inhalation daily. Claims to be feeling much better. Code(s): J44.9 - Chronic obstructive pulmonary disease, unspecified Category: Medical Plan: Continue Trelegy Ellipta 1 inhalation daily. Use Ventolin HFA 2 puffs Q 4-6 hours p.r.n.. Coding Level of Care Code Est Pt Level 3 (23297) Diagnoses COPD (chronic obstructive pulmonary disease) J44.9
--- OUTSIDE RECORDS SUMMARY | 2024-05-30 11:53 | XMS_ITS | Clinical Summary ---
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 Name Role Phone Divya Alexander NP Primary Care Provider [phone] Social History Tobacco Use Types Packs/Day Years Used Date Smoking Tobacco: Never Assessed Comments Unknown Sex and Gender Information Value Date Recorded Sex Assigned at Female 05/29/2024 8:41 AM EDT Legal Sex Female 11:46 AM EST Gender Identity Not on file Sexual Orientation Not on file Plan of Treatment Upcoming Encounters Date Type Department Care Team (Late st Contact Info) Description 05/31/2024 11:00 AM EDT Appointment [facility] Ultrasound [address] [place] [address] Health Maintenance Due Date Last Done Comments DTaP,Tdap,and Td Vaccines (1 - Tdap) 1964 Pneumococcal Vaccine: 50+ Ye ars (1 of 1 - PCV) 10/29/1995 Zoster Vaccines (1 of 2) 10/29/1995 RSV Immunization Adult Patie nts (1 - 1-dose 75+ series) 2020 Depression Screening 01/06/2022 Falls Risk Assessment 01/06/2022 Hepatitis C Screening 01/06/2022 Medicare Annual Wellness Visit 01/06/2022 Osteoporosis Screening (Bone Density Screening) 01/06/2022 Social Influencers of Health Screening 01/06/2022 COVID-19 Vaccine ( - 2023-2 5 season) 2023 Influenza Vaccine (Season Ended) 2024 HIB Vaccines Aged Out No longer eligi ble based on patient's age to complete this topic HPV Vaccines Aged Out No longer eligi ble based on patient's age to complete this topic Hepatitis A Vaccines Aged Out No long er eligible based on patient's age to complete this topic Hepatitis B Vaccines Aged Out No long er eligible based on patient's age to complete this topic IPV Vaccines Aged Out No longer eligi ble based on patient's age to complete this topic MMR Vaccines Aged Out No longer eligi ble based on patient's age to complete this topic Meningococcal ACWY Vaccine Aged Out N o longer eligible based on patient's age to complete this topic Meningococcal B Vaccine Aged Out No l onger eligible based on patient's age to complete this topic RSV Immunization Patients Un mamadou 20 months Aged Out No longer eligible b ased on patient's age to complete this topic Varicella Vaccines Aged Out No longer eligible based on patient's age to complete this topic Insurance MEDICARE [facility] [employer] MEDICARE Care Teams Garage 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
--- OUTSIDE RECORDS SUMMARY | 2024-05-30 11:53 | XMS_ITS | Patient Health Record ---
Author Organization [facility] Address [address] [id number] Care Team Providers Care Optometrist/Practice Owner Name Role Phone Benjamin Divya Primary Care Provider Allergies Allergen (clinical drug ingredient) Drug/Non Drug Allergy documented on EMR Reaction Allergy Type Onset Date Status Bumble nayana (uncoded) Swelling Allergy Active Results Component Value Reference Range Notes Iron and [id number] Reviewed date:05/12/2024 12:20:05 PM Interpretation: Performing Lab:[facility], [address] [facility], Phone - [phone], Director - MDJodry Notes/Report: Iron Bind.Cap.(TIBC) 404 250-450 ug/dL UIBC 317 118-369 ug/dL Iron 87 27-139 ug/dL Iron Saturation 22 15-55 % Vitamin [id number] Reviewed date:05/12/2024 12:20:05 PM Interpretation: Performing Lab:[facility], [email or web address], Phone - [phone], Director - MDJodry Notes/Report: Vitamin B12 8858 416-0298 pg/mL Urinalysis, Complete-[id number] Reviewed date:05/12/2024 12:20:05 PM Interpretation: Performing Lab:[facility], [address] [place] [address], Phone - [phone], Director - MDJodry Notes/Report: Specific Alma 1.007 1.005-1.030 pH 6.0 5.0-7.5 Urine-Color Yellow Yellow Appearance Clear Clear WBC Esterase Trace Negative Protein Negative Negative/Trace Glucose Negative Negative Ketones Negative Negative Occult Blood Negative Negative Bilirubin Negative Negative Urobilinogen,Semi-Qn 0.2 0.2-1.0 mg/dL Nitrite, Urine Negative Negative Microscopic Examination See below: Micr oscopic was indicated and was performed. WBC 0-5 0 - 5 /hpf RBC 0-2 0 - 2 /hpf Epithelial Cells (non renal) 0-10 0 - 10 /hpf Casts None seen None seen /lpf Crystals Present N/A Crystal Type Calcium Oxalate N/A Bacteria None seen None seen/Few Ferritin-[id number] Reviewed date:05/12/2024 12:20:05 PM Interpretation: Performing Lab:[facility] [place], [address] [place] [address], Phone - [phone], Director - MDNoah Notes/Report: Ferritin 171 15-150 ng/mL Vitamin D, 09-[id number] Reviewed date:05/12/2024 12:20:06 PM Interpretation: Performing Lab:[facility] [place], [address] [place] [address], Phone - [phone], Director - Donaldo Notes/Report: Vitamin D, 25-Hydroxy 28.7 30.0-100.0 ng/mL Vitamin D deficiency has been defined by the Left Hand of Medicine and an Endocrine Society practice guideline as a level of serum 25-OH vitamin D less than 20 ng/mL (1,2). The Endocrine Society went on to further define vitamin D insufficiency as a level between 21 and 29 ng/mL (2). 1. IOM (Left Hand of Medicine). 2010. Dietary reference intakes for calcium and D. [place]: The National Academies Press. 2. Lauryn MF, Vernon [place], Ros aM KWONG, et al. Evaluation, treatment, and prevention of vitamin D deficiency: an Endocrine Society clinical practice guideline. JCEM. 2010; 96(7):1911-30. Comp. Metabolic Panel (14)-3 Reviewed date:05/12/2024 12:20:06 PM Interpretation: Performing Lab:[facility] [place], [address] [place] [address], [place], Phone - [phone], Director - MDShanelledry Notes/Report: Glucose 118 70-99 mg/dL BUN 12 8-27 mg/dL Creatinine 0.65 0.57-1.00 mg/dL eGFR 90 >59 mL/min/1.73 BUN/Creatinine Ratio 18 12-28 Sodium 149 134-144 mmol/L Potassium 4.8 3.5-5.2 mmol/L Chloride 107 96-106 mmol/L Carbon Dioxide, Total 21 20-29 mmol/L Calcium 9.8 8.7-10.3 mg/dL Protein, Total 6.6 6.0-8.5 g/dL Albumin 4.1 3.8-4.8 g/dL Globulin, Total 2.5 1.5-4.5 g/dL Bilirubin, Total 0.4 0.0-1.2 mg/dL Alkaline Phosphatase 170 44-121 IU/L AST (SGOT) 28 0-40 IU/L ALT (SGPT) 10 0-32 IU/L LP+Non-HDL Cholesterol-[id number] 5 Reviewed date:05/12/2024 12:20:06 PM Interpretation: Performing Lab:[facility], [address] [place] [address], Phone - [phone], Director - MDShanelledry Notes/Report: Cholesterol, Total 221 100-199 mg/dL Triglycerides 248 0-149 mg/dL HDL Cholesterol 42 >39 mg/dL VLDL Cholesterol Collin 44 5-40 mg/dL LDL Chol Calc ([facility]) 135 0-99 mg/dL Non-HDL Cholesterol 179 0-129 mg/dL TSH reflex to [id number] Reviewed date:05/12/2024 12:20:06 PM Interpretation: Performing Lab:[facility], [address] [place] [address], Phone - [phone], Director - MDTenishay Notes/Report: TSH 1.620 0.450-4.500 uIU/mL CBC With Differential/Platel et-[id number] Reviewed date:05/12/2024 12:20:05 PM Interpretation: Performing Lab:[facility], [address] [place] [address], Phone - [phone], Director - MDJodry Notes/Report: WBC 10.0 3.4-10.8 x10E3/uL RBC 4.86 3.77-5.28 x10E6/uL Hemoglobin 14.1 11.1-15.9 g/dL Hematocrit 43.1 34.0-46.6 % MCV 89 79-97 fL MCH 29.0 26.6-33.0 pg MCHC 32.7 31.5-35.7 g/dL RDW 11.8 11.7-15.4 % Platelets 293 150-450 x10E3/uL Neutrophils 72 Not Estab. % Lymphs 15 Not Estab. % Monocytes 10 Not Estab. % Eos 3 Not Estab. % Basos 0 Not Estab. % Neutrophils (Absolute) 7.2 1.4-7.0 x10E3/uL Lymphs (Absolute) 1.5 0.7-3.1 x10E3/uL Monocytes(Absolute) 1.0 0.1-0.9 x10E3/uL Eos (Absolute) 0.3 0.0-0.4 x10E3/uL Baso (Absolute) 0.0 0.0-0.2 x10E3/uL Immature Granulocytes 0 Not Estab. % Immature Grans (Abs) 0.0 0.0-0.1 x10E3/uL Albumin/Creatinine Ratio,Uri ne-[id number] Reviewed date:05/12/2024 12:20:06 PM Interpretation: Performing Lab:[facility], [address] [place] [address], Phone - [phone], Director - MDJodry Notes/Report: Creatinine, Urine 34.9 Not Estab. mg/dL Albumin, Urine <3.0 Not Estab. ug/mL Alb/Creat Ratio <9 0-29 mg/g creat Normal: 0 - 29 Moderately increased: 30 - 300 Severely increased: >300 Hemoglobin [id number] Reviewed date:05/12/2024 12:20:05 PM Interpretation: Performing Lab:[facility] [address] [place] [address], Phone - [phone], Director - MDJodry Notes/Report: Hemoglobin A1c 5.8 4.8-5.6 % . Prediabetes: 5.7 - 6.4 Diabetes: >6.4 Glycemic control for adults with diabetes: <7.0 Celiac Ab tTG [facility] [address] [id number] 0 Reviewed date:05/12/2024 12:20:05 PM Interpretation: Performing Lab:[facility] [address] [place] [address], Phone - [phone], Director - MDJodry Notes/Report: Immunoglobulin A, Qn, Serum 110 64-422 mg/dL Deamidated Gliadin Abs, IgA 3 0-19 units Negative 0 - 19 Weak Positive 20 - 30 Moderate to Strong Positive >30 Deamidated Gliadin Abs, IgG 3 0-19 units Negative 0 - 19 Weak Positive 20 - 30 Moderate to Strong Positive >30 t-Transglutaminase (tTG) IgA <2 0-3 U/mL Negative 0 - 3 Weak Positive 4 - 10 Positive >10 . Tissue Transglutaminase (tTG) has been identified as the endomysial antigen. Studies have demonstr- ated that endomysial IgA antibodies have over 99% specificity for gluten sensitive enteropathy. t-Transglutaminase (tTG) IgG <2 0-5 U/mL Negative 0 - 5 Weak Positive 6 - 9 Positive >9 GI Profile, Stool, PCR-[id number] 0 Reviewed date:05/12/2024 12:20:05 PM Interpretation: Performing Lab:[facility], [address] [place] [address] Avenue, [place], Phone - [phone], Director - Donaldo Notes/Report: Campylobacter Not Detected Not Detected C difficile toxin A/B Not Detected Not Detected Plesiomonas shigelloides Not Detected Not Detected Salmonella Not Detected Not Detected Vibrio Not Detected Not Detected Vibrio cholerae Not Detected Not Detected Yersinia enterocolitica Not Detected Not Detected Enteroaggregative E coli Not Detected Not Detected Enteropathogenic E coli Not Detected Not Detected Enterotoxigenic E coli Not Detected Not Detected Gynkb-vyxoa-vqihbjwrr E coli Not Detected Not Detected E coli O157 Not applicable Not Detected Shigella/Enteroinvasive E coli Not Detected Not Detected Cryptosporidium Not Detected Not Detected Cyclospora cayetanensis Not Detected Not Detected Entamoeba histolytica Not Detected Not Detected Giardia lamblia Not Detected Not Detected Adenovirus F 40/41 Not Detected Not Detected Astrovirus Not Detected Not Detected Norovirus GI/GII Not Detected Not Detected Rotavirus A Not Detected Not Detected Sapovirus Not Detected Not Detected Reason For Referral Reason Needs a skin check - history of basal cell carcinoma on nose faxed Diagnosis 1 Personal history of other malignant neoplasm of skin (Z85.828) Referral Organization [facility] Referring Provider First Name Divya Referring Provider Last Name Benjamin Referring Provider Speciality Nurse Prac titioner Referred Provider Theresa Swain Referred Provider Specialty Dermatology General Notes [facility] 08[facility]20[facility] 09:40:17 AM >Completed [facility] referral form and faxed Referral Priority Routine Medications Medication SIG (Take, Route, Frequency, Duration) Notes Start Date End Date Status Levothyroxine Sodium 88 MCG 1 tablet in the morning on an empty stomach Oral Once a day for 90 days Active Azelastine HCl 0.1 % 2 puffs (1 spray in each nostril) Nasally Twice a day for 30 days 05/02/2024 Active Trelegy Ellipta 200-62.5-25 MCG/ACT 1 puff Inhalation Once a day for 30 days 03/15/2024 07/13/2024 Active Rosuvastatin Calcium 20 MG 1 tablet at b edtime Orally Once a day for 90 days 05/02/2024 Active Labetalol HCl 200 MG 1 tablet Oral Twice a day for 30 days Active Vitamin D3 50 MCG (2000 UT) 2 tablets Or ally Once a day for 90 days 05/02/2024 01/26/2025 Active Timolol Maleate 0.5 % INSTILL 1 DROP INT O BOTH EYES ONCE DAILY Ophthalmic for 75 Days Active Docusate Sodium 100 MG TAKE 1 CAPSULE BY MOUTH AT BEDTIME Oral for 90 Days Active Ramipril 5 MG 1 capsule Orally Onc e a day for 30 day(s) 05/02/2024 Active Latanoprost 0.005 % Ophthalmic for 56 Days Active Senna 8.6 MG TAKE 1 TABLET BY MAICOL TH AT BEDTIME Oral for 90 Days Active Vitamin B-12 1000 MCG TAKE 1 TABLET BY M OUTH ONCE DAILY Oral for 90 Days Active Citrucel 500 MG TAKE 2 TABLETS BY MO UTH ONCE DAILY Oral for 45 Days Active Ventolin HFA 108 (90 Base) MCG/ACT INHALE 2 PUFFS BY MOUTH EVERY 4 TO 6 HOURS NEEDED FOR SHORTNESS OF BREATH FOR WHEEZING Inhalation for 17 Days Active Immunizations Vaccine Route Administration Date Status Comme nts DTMEY-61-Zjjooqk Vaccine Unknown 05/10/2020 Administere d RRVPG-24-Seoiqea Vaccine Unknown 06/07/2020 Administere d QBJMG-85-Fchhkeg Vaccine Unknown 12/09/2020 Administere d MQGNZ-64-Vaulqrb Vaccine Unknown 07/18/2021 Administere d COVID-19 Moderna BiValent Booster Unknown 01/29/2022 Ad ministered COVID-19 Moderna BiValent Booster Unknown 07/08/2022 Ad ministered COVID Spikevax Moderna Unknown 11/04/2022 Administered COVID Spikevax Moderna Unknown 11/10/2023 Administered *Tdap Unknown 03/23/2019 Administered *Shingrix Unknown 11/17/2023 Administered *Shingrix Unknown 01/21/2024 Administered *PREVNAR 20 Unknown 10/29/2021 Administered *Gccodfjql-Zdewcpj-Fsbw Dose-65+ Unknown 10/16/2016 Adm inistered *Humqpyeag-Vjungcz-Cwwc Dose-65+ Unknown 11/10/2023 Adm inistered *Influenza, High Dose Season al, Quadrivatent Unknown 11/04/2019 Administered *Influenza, High Dose Season al, Quadrivatent Unknown 10/29/2021 Administered *Influenza, High Dose Season al, Quadrivatent Unknown 11/04/2022 Administered Influenza, seasonal, injecta ble, 6-35 months Unknown 11/26/2017 Administered Influenza, seasonal, injecta ble, 6-35 months Unknown 11/14/2018 Administered Pneumococcal polysaccharide PCV 13 Unknown 10/16/2016 A dministered RSV-Arexby Unknown 12/04/2022 Administered Social History Tobacco Use: Social History Observation Description Date Details (start date - stop date) Former Smoker NA - NA AUDIT-C (Standard) Question Answer Notes Did you have a drink containing alcohol in the p ast year? No Points 0 Interpretation Negative Tobacco Control (Standard) Question Answer Notes Tobacco use: Former smoker How long has it been since y ou last smoked? Greater than 10 years Additional Findings: Tobacco user Rolls own ciga rettes Additional Findings: Tobacco non-user Cu rrent nonsmoker, but past smoking history unknown Problems Problem Type SNOMED Code ICD Code Onset Dates Problem Status W/U Status Risk Notes Problem Hypothyroidism (31535318) Hypothyroidism, unspecified (E03.9) Active confirmed Problem Vitamin D deficiency (34727061) Vitamin D deficiency, unspecified (E55.9) Active confirmed Problem Mixed hyperlipidemia (702449275) Mixed hyperlipidemia (E78.2) Active confirmed Problem Bilateral acute angle-closure glaucoma (323376327225221) Acute angle-closure glaucoma, bilateral (H40.213) Active confirmed Problem Chronic kidney disease due to hypertension (506798623749575) Hypertensive chronic kidney disease with stage 1 through stage 4 chronic kidney disease, or unspecified chronic kidney disease (I12.9) Active confirmed Problem Occlusion and stenosis of multiple and bilateral cerebral arteries (956533788) Occlusion and stenosis of bilateral carotid arteries (I65.23) Active confirmed Problem Chronic obstructive pulmonary disease (61117166) Chronic obstructive pulmonary disease, unspecified (J44.9) Active confirmed Problem Chronic kidney disease stage 1 (099958963) Chronic kidney disease, stage 1 (N18.1) Active confirmed Problem History of malignant neoplasm of skin (situation) (296973641) Personal history of other malignant neoplasm of skin (Z85.828) Active confirmed Vital Signs Heart Rate 71 /min 05/02/2024 Temperature 97.3 degrees Fahrenheit 05/02/2024 Oximetry 97 % 05/02/2024 Blood pressure diastolic 76 mm Hg 05/02/2024 Height 60.5 in 05/02/2024 Blood pressure systolic 142 mm Hg 05/02/2024 Weight 110 lbs 03/15/2024 BMI 21.13 kg/m2 03/15/2024 Encounters Encounter Location Date Provider Diagnosis [facility] [address] [id number] 03/15/2024 Divya Alexander Encounter for screen ing for lipoid disorders Z13.220 ; Vitamin D deficiency, unspecified E55.9 ; Encounter for screening for cardiovascular disorders Z13.6 ; Functional diarrhea K59.1 ; Chronic obstructive pulmonary disease, unspecified J44.9 ; Hypertensive chronic kidney disease with stage 1 through stage 4 chronic kidney disease, or unspecified chronic kidney disease I12.9 ; Personal history of other malignant neoplasm of skin Z85.828 ; Hypothyroidism, unspecified E03.9 and Acute angle-closure glaucoma, bilateral H40.213 [facility] [address] [id number] 05/02/2024 Divya Alexander Hypertensive chronic kidney disease with stage 1 through stage 4 chronic kidney disease, or unspecified chronic kidney disease I12.9 ; Vitamin D deficiency, unspecified E55.9 ; Mixed hyperlipidemia E78.2 ; Impaired fasting glucose R73.01 ; Functional diarrhea K59.1 ; Encounter for antibody response examination Z01.84 ; Encounter for screening for other viral diseases Z11.59 ; Asymptomatic menopausal state Z78.0 ; Nasal congestion R09.81 and Chronic kidney disease, stage 1 N18.1 [facility] [address] [id number] 11/23/2023 Divya Martínez MD [address] [id number] 03/15/2024 Divya Martínez MD [address] [id number] 03/20/2024 Divya Martínez MD [address] [id number] 03/22/2024 Divya Martínez MD [address] [id number] 04/03/2024 Divya Martínez MD [address] [id number] 04/18/2024 Divya Martínez MD [address] [id number] 05/02/2024 Divya Jaimese Occlusion and stenos is of bilateral carotid arteries I65.23 [facility] [address] [id number] 05/08/2024 Divya Martínez MD [address] [id number] 05/12/2024 Divya Martínez MD [address] [id number] 05/15/2024 Divya Martínez MD [address] [id number] 05/19/2024 Divya Alexander Assessments Encounter Date Diagnosis (ICD Code) Assessment Notes Treatment Notes Treatment Clinical Notes Section Notes 05/02/2024 Vitamin D deficiency, unspecified (ICD-10 - E55.9) Discussed with patient her low vitamin D level on recent lab work. Will prescribe a vitamin D3 supplement for patient to take daily to help improve her underlying vitamin D level 05/02/2024 Hypertensive chronic kidney disease with stage 1 through stage 4 chronic kidney disease, or unspecified chronic kidney disease (ICD-10 - I12.9) Discussed with patient her elevated blood pressure reading in office. Patient states she has been taking her labetalol as previously prescribed by her previous PCP. Discussed with patient that labetalol does not seem to be managing her hypertension and it also does not provide any additional benefits such as kidney protection. Due to this elevation would like patient to begin ramipril with follow-up in 4 to 6 weeks to reassess blood pressure and determine if patient requires additional medication for further management of hypertension. Patient agreeable with this plan 05/02/2024 Occlusion and stenosis of bilateral carotid arteries (ICD-10 - I65.23) 03/15/2024 Vitamin D deficiency, unspecified (ICD-10 - E55.9) Will obtain labs to assess for vitamin D deficiency 03/15/2024 Encounter for screening for lipoid disorders (ICD-10 - Z13.220) Will obtain labs to assess for hyperlipidemia. Patient states she was previously medicated for elevated cholesterol but has not been treated for years. 03/15/2024 Encounter for screening for cardiovascular disorders (ICD-10 - Z13.6) Blood pressure with elevation noted during today's visit. Will obtain labs to assess for additional cardiac risk such as hyperlipidemia and hyperglycemia 05/02/2024 Mixed hyperlipidemia (ICD-10 - E78.2) Spent time discussing patient's elevated lipid panel as well as her Grimm score of 10.3%. Will begin statin therapy to further improve her LDL and discussed with patient that a goal of 70 or less for an LDL is what I am hoping to achieve. Patient also states she underwent bilateral carotid artery scans through [facility] (pt unsure when these were completed) and will try and obtain these results for our records to determine if patient requires any further interventions or repeat imaging depending on results 05/02/2024 Impaired fasting glucose (ICD-10 - R73.01) Reviewed with patient her impaired fasting glucose on recent lab work. Will obtain updated lab work including a hemoglobin A1c to further assess 03/15/2024 Functional diarrhea (ICD-10 - K59.1) Patient continues to have episodes of loose stool and discussed with patient that obtaining lab work would be helpful to determine if she has any TSH abnormalities given her underlying hypothyroidism. His thyroid is without significant findings patient may benefit from further gastroenterology workup with stool samples and motility study 03/15/2024 Chronic obstructive pulmonary disease, unspecified (ICD-10 - J44.9) Patient with an underlying history of COPD and is followed by pulmonology through [facility]. Patient states that she does use her nebulizer daily but finds that her current daily inhaler is very expensive and is not affordable for patient to remain on this treatment. Would like patient to discontinue her current daily regimen of her Advair discus and did supply patient with a Trelegy 200 mg inhaler. Patient aware of proper use of this medication and she should rinse her mouth out to ensure she does not experience any thrush infections due to the steroid component of this medication. Plan will be for follow-up in 1 month to reassess symptoms since starting this Trelegy inhaler 05/02/2024 Functional diarrhea (ICD-10 - K59.1) Reviewed all previous lab work which did not reveal any thyroid abnormalities. Discussed with patient her continued episodes of looser stool and discussed with patient obtaining stool cultures would be helpful to further determine as patient states she has more episodes of diarrhea on a weekly basis than not. Will wait for additional lab work and stool culture results and then determine if patient would benefit from further gastroenterology workup or further imaging and motility studies 05/02/2024 Encounter for antibody response examination (ICD-10 - Z01.84) Will obtain an MMR titer to ensure immunity 03/15/2024 Hypertensive chronic kidney disease with stage 1 through stage 4 chronic kidney disease, or unspecified chronic kidney disease (ICD-10 - I12.9) Blood pressure with elevation noted in office today. Discussed with patient that she is new and establishing care today and would like to obtain lab work as well as review her previous medical records to further understand patient's underlying medical comorbidities. Would like patient to be seen in 1 month and if blood pressure still remains elevated over 120/70s, will adjust medications and prescribed medications that will have additional benefits as labetalol does not add any additional benefits and may not be treating her hypertension currently. Patient agreeable to this plan 05/02/2024 Encounter for screening for other viral diseases (ICD-10 - Z11.59) Per screening guidelines we will obtain a hep C status 03/15/2024 Personal history of other malignant neoplasm of skin (ICD-10 - Z85.828) Patient has a history of basal cell carcinoma noted to her nose, which was removed. 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 Patient states she has been unable to see this provider as her previous PCP, [facility], was unable to refer her given their combine inspector medicine format 05/02/2024 Asymptomatic menopausal state (ICD-10 - Z78.0) Reviewed previous records and patient states she was previously treated with Prolia injections before 2019. She states she was told she had osteoporosis. Reviewed records and patient's most recent DEXA scan in 2021 revealed osteopenia. Patient is due for an updated DEXA scan to reassess and we will order that at this time 03/15/2024 Hypothyroidism, unspecified (ICD-10 - E03.9) Patient with a longstanding history of hypothyroidism. Will obtain an updated TSH level to ensure adequate TSH levels on current regimen 03/15/2024 Acute angle-closure glaucoma, bilateral (ICD-10 - H40.213) Patient with a history of bilateral glaucoma and is followed by her just. Patient to remain on current medication regimen and follow-up with specialist as scheduled to reassess eye pressures and review persistent symptoms of concern 05/02/2024 Nasal congestion (ICD-10 - R09.81) Patient continues to have nasal congestion and suspect that this may be related to seasonal allergies as patient states this does not happen year-round. Would like patient to begin azelastine nasal spray for further assistance of nasal congestion. Patient to follow-up in June to reassess blood pressure and will also discuss nasal congestion to see if there is any improvement with her azelastine nasal spray 05/02/2024 Chronic kidney disease, stage 1 (ICD-10 - N18.1) Most recent GFR noted to be 90 Plan Of Treatment Pending Test Test Name Order Date Ultrasound : Carotid Doppler Bilateral 0 05/02/2024 Dexa Bone Density (Axial) 05/02/2024 Next Appt Details Provider Name:Divya Alexander , 06/08/2024 11:00:00 AM, [address] [place] [address], [phone], Provider Name:Divya Alexander , 07/26/2024 10:30:00 AM, [address] [place] [address], [phone], Insurance Providers Payer Name Payer Address Payer Phone Subscriber Number Group Number Insured Name Patient Relationship to Insured Coverage Start Date Coverage End Date MEDICARE [address] [place] [phone] [id number] Candi Mojica Self - patient is the insured [facility] [address] [place] [address] [phone] [id number] Candi Mojica Self - patient is the insured Medical (General) History Medical History History ICD Code high blood pressure skin cancer (nose, in the ) COPD Glaucoma hypothyroidism Surgical History Surgery Date(Month/Year) tamica in right hip 2017 tonsillectomy Hospitalization History Reason Date(Month/Year)
--- OUTSIDE RECORDS SUMMARY | 2024-05-30 11:53 | XMS_ITS ---
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 Name Role Phone Benjamin Divya Primary Care Provider [phone] Allergies Allergen (clinical drug ingredient) Drug/Non Drug Allergy documented on EMR Reaction Allergy Type Onset Date Status Bumble nayana (uncoded) Swelling Allergy Active REASON FOR VISIT Directions needed on Refill Medications Medication SIG (Take, Route, Frequency, Duration) Notes Start Date End Date Status Levothyroxine Sodium 88 MCG 1 tablet in the morning on an empty stomach Oral Once a day for 90 days Active Encounters Encounter Location Date Provider Diagnosis [facility] [address] [phone] 05/19/2024 Divya Alexander Plan Of Treatment Medication Medication Name Sig Start Date Stop Date Notes Levothyroxine Sodium 88 MCG 1 tablet in the morning on an empty stomach Oral Once a day for 90 days Next Appt Details Provider Name:Divya Alexander , 06/08/2024 11:00:00 AM, [address] [place] [address], [phone], Provider Name:Divya Alexander , 07/26/2024 10:30:00 AM, [address] [place] [address], [phone], Progress Notes * Harry HAMMONDOB:1945 (78 yo F)Acc No.[id number]:05/19/2024 Patient:?Candi HAMMOND :1945???Age:78 Y???Sex:Female Address:[address] [place] [address], [id number] * Refills? Refill Levothyroxine Sodium Tablet, 88 MCG, Oral, 90 Tablet, 1 tablet in the morning on an empty stomach, Once a day, 90 days, Refills=0 Subjective: * Chief Complaints: * ???Directions needed on Refi ll * Medical History:? * Surgical History:? * Hospitalization/Major Diagno stic Procedure:? * Medications:? * Allergies:?Amy nayana: Cecilia portillo[Allergies Verified] Objective: * Vitals:? Past Vitals:* 05/02/2024 Temp:97.3F, HR:71/min, BP:14 2/76mm Hg, Ht:60.5in, Oxygen sat %:97% * 03/15/2024 Temp:97.3F, HR:72/min, BP:13 4/82mm Hg, Wt:110lbs, BMI:21.13Index, Ht:60.5in, Oxygen sat %:97% * Physical Examination:? Assessment: Plan: * Treatment: * Procedure Codes:? * true * Date:? Generated for Brenda flores/Cuca/Yanique on:?05/30/2024 11:53 AM EDT
--- OUTSIDE RECORDS SUMMARY | 2024-05-30 11:53 | XMS_ITS ---
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 [employer] Name Role Phone Divay Alexander Primary Care Provider [phone] REASON FOR VISIT results Encounters Encounter Location Date Provider Diagnosis [facility] [address] [place] [address] [place] [phone] 05/12/2024 Divya Alexander Plan Of Treatment Next Appt Details Provider Name:Divya Alexander , 06/08/2024 11:00:00 AM, [address] [place] [address], [phone], Provider Name:Divya Alexander , 07/26/2024 10:30:00 AM, [address] [place] [address], [phone], Progress Notes * Harry SHETTYOB:1945 (78 yo F)Acc No.[id number]:05/12/2024 Patient:?MANISHItaloCandi :1945???Age:78 Y???Sex:Female Address:[address] [place] [address], [phone] * true * Date:? Generated for Printi ng/Faxing/eTransmitting on:?05/30/2024 11:52 AM EDT
--- OUTSIDE RECORDS SUMMARY | 2024-05-30 11:53 | XMS_ITS ---
Author Organization [facility] Address [address] [place] [phone] Care Team Providers Care Maltster Name Role Phone AlexanderFazal finleyley Primary Care Provider [phone] Allergies Allergen (clinical drug ingredient) Drug/Non Drug Allergy documented on EMR Reaction Allergy Type Onset Date Status Bumble nayana (uncoded) Swelling Allergy Active REASON FOR VISIT refill Medications Medication SIG (Take, Route, Frequency, Duration) Notes Start Date End Date Status Levothyroxine Sodium 88 MCG Oral for 90 Days Active Encounters Encounter Location Date Provider Diagnosis [facility] [address] [place] [address] [place] [phone] 05/15/2024 Divya Alexander Plan Of Treatment Medication Medication Name Sig Start Date Stop Date Notes Levothyroxine Sodium 88 MCG Oral for 90 Days Next Appt Details Provider Name:Divya Alexander , 06/08/2024 11:00:00 AM, [address] [place] [address], [phone], Provider Name:Divya Alexander , 07/26/2024 10:30:00 AM, [address] [place] [address], [phone], Progress Notes * Harry HAMMONDOB:1945 (78 yo F)Acc No.[id number]:05/15/2024 Patient:?Candi HAMMOND :1945???Age:78 Y???Sex:Female Address:[address] [place] [address], [phone] * Refills? Refill Levothyroxine Sodium Tablet, 88 MCG, Oral, 90 Tablet, 90 Days Subjective: * Chief Complaints: * ???Refill * Medical History:? * Surgical History:? * Hospitalization/Major Diagno stic Procedure:? * Medications:? * Allergies:?Jonathanmble nayana: Cecilia portillo[Allergies Verified] Objective: * Vitals:? Past Vitals:* 05/02/2024 Temp:97.3F, HR:71/min, BP:14 2/76mm Hg, Ht:60.5in, Oxygen sat %:97% * 03/15/2024 Temp:97.3F, HR:72/min, BP:13 4/82mm Hg, Wt:110lbs, BMI:21.13Index, Ht:60.5in, Oxygen sat %:97% * Physical Examination:? Assessment: Plan: * Treatment: * Procedure Codes:? * true * Date:? Generated for Brenda flores/Cuca/Donalditting on:?05/30/2024 11:52 AM EDT
== END 2024-05-30 10:47 | disposition home or self-care (01) ==
LOC: HO.HPS 10:17
PROVIDERS: PCP Registered Nurse; Visit Provider Internal Medicine
DX: J44.9 Chronic obstructive pulmonary disease, unspecified (principal)
CPT/HCPCS: 99213

== ENCOUNTER → 2024-05-30 10:16 | Outpatient (BNVA) | payer MEDICARE, SELFPAY | PROVIDERS: PCP Registered Nurse; Visit Provider Internal Medicine | DX: J44.9 Chronic obstructive pulmonary disease, unspecified (principal) | CPT/HCPCS: 99212 ==

== ENCOUNTER 2024-09-01 12:08 | Outpatient (AMB) | payer MEDICARE, SELFPAY ==
--- OUTSIDE RECORDS SUMMARY | 2024-09-01 12:11 | XMS_ITS | Patient Health Record ---
Author Organization [facility] Address [address] [id number] Care Team Providers Care Matchbook Maker Name Role Phone Divya Alexander Primary Care Provider [phone] Allergies Allergen (clinical drug ingredient) Drug/Non Drug Allergy documented on EMR Reaction Allergy Type Onset Date Status Bumble nayana (uncoded) Swelling Allergy Active Results Component Value Reference Range Notes CT Chest Reviewed date:08/14/2024 12:33:35 PM Interpretation: Performing Lab: Notes/Report: Original Report PROCEDURE: CT CHEST without CONTRAST INDICATION: Former smoker, nicotine dependence in remission. TECHNIQUE: CT of the chest was performed without contrast. 1121 DICOM images received. Automated mA/kV exposure control was utilized and patient examination was performed in strict accordance with principles of ALARA. RADIATION AMOUNT: 323.80 mGy-cm. COMPARISON: None. FINDINGS: The heart is normal in size without pericardial effusion. Coronary artery calcifications are identified. Thoracic lymph nodes are not enlarged. There is no pleural effusion, pleural thickening, or pneumothorax. The airways are patent. A mass lesion is noted in the paramedian right lower lobe with contact of the right lower lobe bronchus, as well as the pleural region measuring up to 3.6 x 2.8 cm axial image 40. Mild emphysema.. Upper abdomen demonstrates no acute pathology. There are no acute fractures. No suspicious bony lesions. IMPRESSION: Suspect neoplasm paramedian right lower lobe. Suggest further evaluation with tissue sampling and PET/CT. Moderate emphysema Jesús Buchanan MD Signed by Jesús Buchanan MD Read by: JESÚS BUCHANAN MD Reviewed and Electronically Signed by: JESÚS BUCHANAN MD LACTATE Reviewed date:06/09/2024 09:52:38 AM Interpretation: Performing Lab: Notes/Report: Lactate 1.3 0.4-2.0 mmol/L VAS US DUPLEX CAROTID BILATE RAL Reviewed date:06/02/2024 03:13:09 PM Interpretation: Performing Lab: Notes/Report: See Note [facility], a member of [facility] PROCEDURE: Carotid ultrasound. HISTORY: occlusion and stenosis of bilateral carotid arteries. TECHNIQUE: Grayscale, color Doppler, and spectral Doppler ultrasound evaluation of the carotid and vertebral arteries in the neck. COMPARISON: None. FINDINGS: There is shadowing calcified plaque in the right carotid bulb which partially obscures the proximal internal carotid artery. A peak systolic velocity of 158 cm/s is measured in this area. The mid and distal internal carotid artery are difficult to evaluate due to tortuosity. Peak systolic velocity of 160 cm/s in the mid right internal carotid artery and 126 cm/s in the distal right internal carotid artery. Peak systolic velocity of 148 cm/s in the right ECA suggesting a mild stenosis. Shadowing plaque at the left carotid bulb also limits evaluation of this area. A peak systolic velocity of 193 cm/s is measured in the proximal ECA suggesting a mild--moderate stenosis. Elevated velocity of 364 cm/s in the proximal internal carotid artery. The mid and distal internal carotid artery are difficult to evaluate because of vessel tortuosity. Peak velocity of 286 cm/s in the mid internal carotid artery and 148 cm/s in the distal internal carotid artery. ICA/CCA ratio of 2.1 on the right and 2.6 on the left. Antegrade flow with normal spectral Doppler tracings in both vertebral arteries. IMPRESSION: 1. Evaluation of the carotids is limited secondary to shadowing plaque in the bulbs and tortuous internal carotid arteries. 2. Elevated peak systolic velocity of 364 cm/s in the proximal left internal carotid artery, which is suggestive of a greater than 90% stenosis. An ICA/CCA ratio of 2.6 suggest a lower grade (50-69%) stenosis. CTA could clarify. 3. Elevated peak systolic velocity of 158 cm/s in the proximal right internal carotid artery and an ICA/CCA ratio of 2.1, suggestive of a 50-69% stenosis. -------- FINAL REPORT -------- Dictated By: Mele Escobedo Dictated Date: 05/31/2024 12:55 ET Assigned Physician: Mele Escobedo Reviewed and Electronically Signed By: Mele Escobedo Signed Date: 05/31/2024 13:57 ET Workstation ID: [id number] Transcribed By: Self Edit Transcribed Date: 05/31/2024 13:[address] Chest WO Reviewed date:08/28/2024 11:31:14 AM Interpretation: Performing Lab: Notes/Report: B-Type Natriuretic Peptide-1 [id number] Reviewed date:06/23/2024 01:43:25 PM Interpretation: Performing Lab:[facility], [address] [place] [address], Phone - [phone], Director - MDNoah Notes/Report: B-Type Natriuretic Peptide 265.8 0.0-100.0 pg/m L Siemens ADVIA Centaur XP methodology CBC With Differential/Platel et-[id number] Reviewed date:06/23/2024 01:43:25 PM Interpretation: Performing Lab:[facility], [address] [place] [address], Phone - [phone], Director - MDJoy Notes/Report: WBC 11.4 3.4-10.8 x10E3/uL RBC 3.94 3.77-5.28 x10E6/uL Hemoglobin 11.7 11.1-15.9 g/dL Hematocrit 35.7 34.0-46.6 % MCV 91 79-97 fL MCH 29.7 26.6-33.0 pg MCHC 32.8 31.5-35.7 g/dL RDW 12.8 11.7-15.4 % Platelets 288 150-450 x10E3/uL Neutrophils 71 Not Estab. % Lymphs 15 Not Estab. % Monocytes 12 Not Estab. % Eos 2 Not Estab. % Basos 0 Not Estab. % Neutrophils (Absolute) 8.0 1.4-7.0 x10E3/uL Lymphs (Absolute) 1.7 0.7-3.1 x10E3/uL Monocytes(Absolute) 1.4 0.1-0.9 x10E3/uL Eos (Absolute) 0.2 0.0-0.4 x10E3/uL Baso (Absolute) 0.0 0.0-0.2 x10E3/uL Immature Granulocytes 0 Not Estab. % Immature Grans (Abs) 0.0 0.0-0.1 x10E3/uL Ultrasound : Carotid Doppler Bilateral Reviewed date:06/05/2024 04:15:41 PM Interpretation: Performing Lab: Notes/Report: CT Low Dose Lung Screening Reviewed date:08/28/2024 11:28:21 AM Interpretation: Performing Lab: Notes/Report: TSH reflex to [id number] Reviewed date:08/05/2024 12:38:30 PM Interpretation: Performing Lab:[facility] [address] [place] [address], Phone - [phone], Director - TXTenishay Notes/Report: TSH 0.304 0.450-4.500 uIU/mL HCV Antibody-[id number] Reviewed date:08/05/2024 12:38:30 PM Interpretation: Performing Lab:[facility] [address] [place] [address], Phone - [phone], Director - MDShanelledry Notes/Report: Hep C Virus Ab Non Reactive Non Reactive HCV antibody alone does not differentiate between previously resolved infection and active infection. Equivocal and Reactive HCV antibody results should be followed up with an HCV RNA test to support the diagnosis of active HCV infection. LP+Non-HDL Cholesterol-02119 5 Reviewed date:08/05/2024 12:38:30 PM Interpretation: Performing Lab:[facility] [address] [place] [address], Phone - [phone], Director - MDJodry Notes/Report: Cholesterol, Total 107 100-199 mg/dL Triglycerides 134 0-149 mg/dL HDL Cholesterol 42 >39 mg/dL VLDL Cholesterol Collin 23 5-40 mg/dL LDL Chol Calc (NIH) 42 0-99 mg/dL Non-HDL Cholesterol 65 0-129 mg/dL Comp. Metabolic Panel (14)-3 Reviewed date:08/05/2024 12:38:30 PM Interpretation: Performing Lab:[facility] [address] [place] [address], Phone - [phone], Director - Jimenadry Notes/Report: Glucose 137 70-99 mg/dL BUN 8 8-27 mg/dL Creatinine 0.69 0.57-1.00 mg/dL eGFR 89 >59 mL/min/1.73 BUN/Creatinine Ratio 12 12-28 Sodium 142 134-144 mmol/L Potassium 4.1 3.5-5.2 mmol/L Chloride 103 96-106 mmol/L Carbon Dioxide, Total 24 20-29 mmol/L Calcium 9.8 8.7-10.3 mg/dL Protein, Total 6.0 6.0-8.5 g/dL Albumin 4.0 3.8-4.8 g/dL Globulin, Total 2.0 1.5-4.5 g/dL Bilirubin, Total 0.6 0.0-1.2 mg/dL Alkaline Phosphatase 125 44-121 IU/L AST (SGOT) 22 0-40 IU/L ALT (SGPT) 14 0-32 IU/L B-Type Natriuretic Peptide-1 86228 Reviewed date:08/05/2024 12:38:30 PM Interpretation: Performing Lab:[facility], [address] [place] [address], Phone - [phone], Director - MDJodry Notes/Report: B-Type Natriuretic Peptide 204.0 0.0-100.0 pg/m L Siemens ADVIA Centaur XP methodology Vitamin D, 87-Ituehfy-[id number] Reviewed date:08/05/2024 12:38:30 PM Interpretation: Performing Lab:[facility], [address] [facility], Phone - [phone], Director - MDJodry Notes/Report: Vitamin D, 25-Hydroxy 75.5 30.0-100.0 ng/mL Vitamin D deficiency has been defined by the [place] of Medicine and an Endocrine Society practice guideline as a level of serum 25-OH vitamin D less than 20 ng/mL (1,2). The Endocrine Society went on to further define vitamin D insufficiency as a level between 21 and 29 ng/mL (2). 1. IOM ([place] of Medicine). 2010. Dietary reference intakes for calcium and D. [place]: The National Academies Press. 2. Lauryn MF, Vernon BUTLER, Rosa M KWONG, et al. Evaluation, treatment, and prevention of vitamin D deficiency: an Endocrine Society clinical practice guideline. JCEM. 2010; 96(7):1911-30. Measles/Mumps/Rubella Immuni ty-[id number] Reviewed date:08/05/2024 12:38:30 PM Interpretation: Performing Lab:[facility], [address] [facility], Phone - [phone], Director - [facility] Notes/Report: Rubella Antibodies, IgG 26.60 Immune > 0.99 index Non-immune <0.90 Equivocal 0.90 - 0.99 Immune >0.99 Measles Antibodies, IgG >300.0 Immune > 16.4 AU/mL Negative <13.5 Equivocal 13.5 - 16.4 Positive >16.4 Presence of antibodies to Rubeola is presumptive evidence of immunity except when acute infection is suspected. Mumps Abs, IgG 244.0 Immune >10.9 AU/mL Negative <9.0 Equivocal 9.0 - 10.9 Positive >10.9 A positive result generally indicates past exposure to Mumps virus or previous vaccination. CBC With Differential/Platel et-[id number] Reviewed date:08/05/2024 12:38:30 PM Interpretation: Performing Lab:[facility], [address] [facility], [place], Phone - [phone], Director - MDJodry Notes/Report: WBC 9.4 3.4-10.8 x10E3/uL RBC 4.42 3.77-5.28 x10E6/uL Hemoglobin 13.0 11.1-15.9 g/dL Hematocrit 39.3 34.0-46.6 % MCV 89 79-97 fL MCH 29.4 26.6-33.0 pg MCHC 33.1 31.5-35.7 g/dL RDW 12.3 11.7-15.4 % Platelets 252 150-450 x10E3/uL Neutrophils 75 Not Estab. % Lymphs 14 Not Estab. % Monocytes 8 Not Estab. % Eos 3 Not Estab. % Basos 0 Not Estab. % Neutrophils (Absolute) 7.0 1.4-7.0 x10E3/uL Lymphs (Absolute) 1.3 0.7-3.1 x10E3/uL Monocytes(Absolute) 0.7 0.1-0.9 x10E3/uL Eos (Absolute) 0.3 0.0-0.4 x10E3/uL Baso (Absolute) 0.0 0.0-0.2 x10E3/uL Immature Granulocytes 0 Not Estab. % Immature Grans (Abs) 0.0 0.0-0.1 x10E3/uL Urinalysis, Complete-[id number] Reviewed date:08/05/2024 12:38:30 PM Interpretation: Performing Lab:[facility] [place], [address] [facility], Phone - [phone], Director - MDJodry Notes/Report: Specific [place] 1.021 1.005-1.030 pH 6.5 5.0-7.5 Urine-Color Yellow Yellow Appearance Clear Clear WBC Esterase Trace Negative Protein 1+ Negative/Trace Glucose Negative Negative Ketones Negative Negative Occult Blood Negative Negative Bilirubin Negative Negative Urobilinogen,Semi-Qn 0.2 0.2-1.0 mg/dL Nitrite, Urine Negative Negative Microscopic Examination See below: Micr oscopic was indicated and was performed. WBC 0-5 0 - 5 /hpf RBC None seen 0 - 2 /hpf Epithelial Cells (non renal) 0-10 0 - 10 /hpf Casts None seen None seen /lpf Bacteria None seen None seen/Few Echocardiogram Reviewed date:08/05/2024 12:38:30 PM Interpretation: Performing Lab: Notes/Report: Comp. Metabolic Panel (14)-3 [id number] Reviewed date:06/21/2024 07:14:59 AM Interpretation: Performing Lab:[facility] [place], [address] [facility], Phone - [phone], [facility] Notes/Report: Glucose 66 70-99 mg/dL BUN 8 8-27 mg/dL Creatinine 0.74 0.57-1.00 mg/dL eGFR 83 >59 mL/min/1.73 BUN/Creatinine Ratio 11 02-04 Sodium 144 134-144 mmol/L Potassium 4.5 3.5-5.2 mmol/L Chloride 106 96-106 mmol/L Carbon Dioxide, Total 16 20-29 mmol/L Calcium 9.6 8.7-10.3 mg/dL Protein, Total 6.1 6.0-8.5 g/dL Albumin 3.8 3.8-4.8 g/dL Globulin, Total 2.3 1.5-4.5 g/dL Bilirubin, Total 0.5 0.0-1.2 mg/dL Alkaline Phosphatase 124 44-121 IU/L AST (SGOT) 27 0-40 IU/L ALT (SGPT) 25 0-32 IU/L B-Type Natriuretic Peptide-1 50519 Reviewed date:06/21/2024 07:14:59 AM Interpretation: Performing Lab:[facility] [place], [address] [facility], Phone - [phone], Director - Donaldo Notes/Report: B-Type Natriuretic Peptide 301.0 0.0-100.0 pg/m L Siemens ADVIA Centaur XP methodology CBC With Differential/Platel et-556489 Reviewed date:06/21/2024 07:14:59 AM Interpretation: Performing Lab:[facility] [place], [address] [facility], [place], Phone - [phone], Director - Donaldo Notes/Report: WBC 14.5 3.4-10.8 x10E3/uL RBC 4.33 3.77-5.28 x10E6/uL Hemoglobin 12.5 11.1-15.9 g/dL Hematocrit 38.8 34.0-46.6 % MCV 90 79-97 fL MCH 28.9 26.6-33.0 pg MCHC 32.2 31.5-35.7 g/dL RDW 12.2 11.7-15.4 % Platelets 305 150-450 x10E3/uL Neutrophils 72 Not Estab. % Lymphs 14 Not Estab. % Monocytes 10 Not Estab. % Eos 3 Not Estab. % Basos 0 Not Estab. % Neutrophils (Absolute) 10.5 1.4-7.0 x10E3/uL Lymphs (Absolute) 2.1 0.7-3.1 x10E3/uL Monocytes(Absolute) 1.4 0.1-0.9 x10E3/uL Eos (Absolute) 0.4 0.0-0.4 x10E3/uL Baso (Absolute) 0.0 0.0-0.2 x10E3/uL Immature Granulocytes 1 Not Estab. % Immature Grans (Abs) 0.2 0.0-0.1 x10E3/uL (An elevated percentage of Immature Granulocytes has not been found to be clinically significant as a sole clinical predictor of disease. Does NOT include bands or blast cells. associated physiological leukocytosis may also show increased immature granulocytes without clinical significance.) Dexa Bone Density (Axial) Reviewed date:07/20/2024 06:25:20 AM Interpretation: Performing Lab: Notes/Report: Name:CANDI HAMMOND Age:78 years Sex:Female Ethnicity:White Date of :1945 Reason: Z78.0 POSTMENOPAUSAL; Clinical Question(s): Other: Referring Provider:Divya Alexander NP Study:Dexa Bone Density (Axial) Bone Density: Region BMD T-Score Z-Score Classification AP Spine 0.857 -1.5 1.1 Osteopenia TOTAL HIP 0.675 -2.2 -0.2 Osteopenia FEM NECK 0.639 -1.9 0.3 Osteopenia 10-year Fracture Risk: 1 FRAX(R) Version 3.08. Fracture probability calculated for an untreated patient. Fracture probability may be lower if the patient has received treatment. Major Osteoporotic Fracture 14% Hip Fracture 3.7% RATE OF CHANGE(SPINE): BMD values have zfanwvoxu81.4% from previous RATE OF CHANGE(TOTAL HIP): BMD values have increased 4.2% from previous RATE OF CHANGE(FEMORAL NECK): BMD values have increased 3.0% from previous Impression: The patient has osteopenia as determined by WHO criteria. WSN: [id number] Ordering Physician: Divya Alexander Dictated By: Talha DE JESUS, Adriel Boo GI Profile, Stool, PCR-[id number] 0 Reviewed date:05/12/2024 12:20:05 PM Interpretation: Performing Lab:[facility], [address] [place] [address], [place], Phone - [phone], Director - Donaldo Notes/Report: Campylobacter Not Detected [...] Enterotoxigenic E coli Not Detected Not Detected Ddqmq-lvajx-igajrjnbb E coli Not Detected Not Detected E [...] Not Detected Sapovirus Not Detected Not Detected [facility]eliac [facility] Reviewed date:05/12/2024 12:20:05 PM Interpretation: Performing Lab:[facility], Phone - [phone], Director - Donaldo Notes/Report: Immunoglobulin A, Qn, Serum 110 64-422 [...] Weak Positive 6 - 9 Positive >9 Hemoglobin B3h-[id number] Reviewed date:05/12/2024 12:20:05 PM Interpretation: Performing Lab:[facility] [place], Phone - [phone], Director - mamadou Notes/Report: Hemoglobin A1c 5.8 4.8-5.6 % . Prediabetes: 5.7 - 6.4 Diabetes: >6.4 Glycemic control for adults with diabetes: <7.0 TSH reflex to F1C-[id number] Reviewed date:05/12/2024 12:20:06 PM Interpretation: Performing Lab:[facility] [place], Phone - [phone], Director - Donaldo Notes/Report: TSH 1.620 0.450-4.500 uIU/mL LP+Non-HDL Cholesterol-28801 5 Reviewed date:05/12/2024 12:20:06 PM Interpretation: Performing Lab:[facility], Phone - [phone], Director - Donaldo Notes/Report: Cholesterol, Total 221 100-199 mg/dL Triglycerides 248 0-149 mg/dL HDL Cholesterol 42 >39 mg/dL VLDL Cholesterol Collin 44 5-40 mg/dL LDL Chol Calc ([facility]) 135 0-99 mg/dL Non-HDL Cholesterol 179 0-129 mg/dL Comp. Metabolic Panel (14)-3 Reviewed date:05/12/2024 12:20:06 PM Interpretation: Performing Lab:[facility], [address] [facility], Phone - [phone], Director - Capriy Notes/Report: Glucose 118 70-99 mg/dL BUN 12 [...] 0-40 IU/L ALT (SGPT) 10 0-32 IU/L Albumin/Creatinine Ratio,Uri ne-275912 Reviewed date:05/12/2024 12:20:06 PM Interpretation: Performing Lab:[facility], [address] [facility], Phone - [phone], Director - Capriy Notes/Report: Creatinine, Urine 34.9 Not Estab. mg/dL Albumin, Urine <3.0 Not Estab. ug/mL Alb/Creat Ratio <9 0-29 mg/g creat Normal: 0 - 29 Moderately increased: 30 - 300 Severely increased: >300 Vitamin D, 64-Mxtygiq-461193 Reviewed date:05/12/2024 12:20:06 PM Interpretation: Performing Lab:[facility], [address] [facility], Phone - [phone], Director - Donaldo Notes/Report: Vitamin D, 25-Hydroxy 28.7 30.0-100.0 ng/mL Vitamin D deficiency has been defined by the [place] of Medicine and an Endocrine Society practice guideline as a level of serum 25-OH vitamin D less than 20 ng/mL (1,2). The Endocrine Society went on to further define vitamin D insufficiency as a level between 21 and 29 ng/mL (2). 1. IOM ([place] of Medicine). 2010. Dietary reference intakes for calcium and D. [place]: The National Academies Press. 2. Lauryn MF, Vernon BUTLER, Rosa M KWONG, et al. Evaluation, treatment, and prevention of vitamin D deficiency: an Endocrine Society clinical practice guideline. JCEM. 2010; 96(7):1911-30. CBC With Differential/Platel et-165650 Reviewed date:05/12/2024 12:20:05 PM Interpretation: Performing Lab:[facility] [place], [address] [place] [address], Phone - [phone], Director - Donaldo Notes/Report: WBC 10.0 3.4-10.8 x10E3/uL RBC 4.86 [...] % Immature Grans (Abs) 0.0 0.0-0.1 x10E3/uL Ferritin-[id number] Reviewed date:05/12/2024 12:20:05 PM Interpretation: Performing Lab:[address], Phone - [phone], Director - Donaldo Notes/Report: Ferritin 171 15-150 ng/mL Urinalysis, Complete-[id number] Reviewed date:05/12/2024 12:20:05 PM Interpretation: Performing Lab:[address], Phone - [phone], Director - Donaldo Notes/Report: Specific [place] 1.007 1.005-1.030 pH 6.0 5.0-7.5 Urine-Color Yellow [...] Oxalate N/A Bacteria None seen None seen/Few Vitamin [id number] Reviewed date:05/12/2024 12:20:05 PM Interpretation: Performing Lab:[facility], Phone - [phone], Director - [facility] Notes/Report: Vitamin B12 9108 407-5733 pg/mL Iron and TIBC-[id number] Reviewed date:05/12/2024 12:20:05 PM Interpretation: Performing Lab[facility], Phone - [phone], Director - Donaldo Notes/Report: Iron Bind.Cap.(TIBC) 404 250-450 ug/dL UIBC 317 118-369 ug/dL Iron 87 27-139 ug/dL Iron Saturation 22 15-55 % CBC WITH AUTO DIFFERENTIAL Reviewed date:06/09/2024 09:52:38 AM Interpretation: Performing Lab: Notes/Report: WBC 13.2 4.8-10.8 K/mcL RBC 4.00 3.80-4.80 M/mcL Hemoglobin 11.5 11.5-16.0 g/dL Hematocrit 35.2 35.0-47.0 % MCV 88.7 79.0-98.0 FL MCH 29.0 27.0-32.0 pcg MCHC 32.7 32.0-37.0 g/dL RDW 12.3 11.0-15.0 % Platelets 229 130-400 K/mcL MPV 11.0 7.0-11.0 FL NRBC 0.0 <1.0 % NRBC Absolute 0.00 <0.10 K/mcL Neutrophils Relative 88.6 Lymphocytes Relative 5.2 Monocytes Relative 5.6 Eosinophils Relative 0.0 Basophils Relative 0.1 Immature Granulocytes Relative 0.5 Neutrophils Absolute 11.74 1.50-7.00 K/mcL Lymphocytes Absolute 0.69 1.00-5.00 K/mcL Monocytes Absolute 0.74 0.20-1.00 K/mcL Eosinophils Absolute 0.00 0.00-0.50 K/mcL Basophils Absolute 0.01 0.00-0.20 K/mcL Immature Granulocytes Absolute 0.06 0.00-0.03 K/mcL BASIC METABOLIC PANEL Reviewed date:06/09/2024 09:52:38 AM Interpretation: Performing Lab: Notes/Report: Sodium 136 133-145 mmol/L Potassium 4.8 3.5-5.5 mmol/L Hemolysis pre sent Chloride 102 96-110 mmol/L CO2 25 21-32 mmol/L Anion Gap 9 3-11 Glucose 142 70-100 mg/dL BUN 29 5-25 mg/dL Creatinine 0.83 0.50-1.10 mg/dL eGFR 72 >=60 mL/min/1.73m2 Calculation based on the Chronic Kidney Disease Epidemiology Collaboration (CKD-EPI) equation refit without adjustment for race. BUN/Creatinine Ratio 34.9 Calcium 9.2 8.5-10.5 mg/dL TROPONIN I HIGH SENSITIVITY Reviewed date:06/09/2024 09:52:38 AM Interpretation: Performing Lab: Notes/Report: High levels of biotin in samples may falsely decrease hsTroponin values. Use caution when interpreting hsTroponin results in patients taking biotin who exhibit renal impairment (eGFR <60) or in patients taking more than 20 mg/day of biotin. High Sensitivity Troponin I 83 <=54 ng/L LACTATE Reviewed date:06/09/2024 09:52:38 AM Interpretation: Performing Lab: Notes/Report: Lactate 2.2 0.4-2.0 mmol/L CULTURE BLOOD Reviewed date:06/14/2024 06:12:02 AM Interpretation: Performing Lab: Notes/Report: Culture, Blood No growth at 5 days CULTURE BLOOD Reviewed date:06/14/2024 06:12:02 AM Interpretation: Performing Lab: Notes/Report: Culture, Blood No growth at 5 days Reason For Referral Reason Needs a skin check - history of basal cell carcinoma on nose faxed Diagnosis 1 Personal history of other malignant neoplasm of skin (Z85.828) Referral Organization [facility] Referring Provider First Name Divya Referring Provider Last Name Benjamin Referring Provider Speciality Nurse Prac latonyaioneyonis Referred Provider Theresa Swain Referred Provider Specialty Dermatology General Notes Viviane SALES 08/2024 09:40:17 AM >Completed [place] [facility] referral form and faxed Referral Priority Routine Reason 90% left carotid den nosis faxed Diagnosis 1 Occlusion and stenos is of left carotid artery (I65.22) Referral Organization [facility] Referring Provider First Name Divya Referring Provider Last Name Benjamin Referring Provider Speciality Nurse Prac stefani Referred Provider Sapna Don Referred Provider Specialty Cardiology General Notes Viviane SALES 06/09 08:33:31 AM >faxed Referral Priority Routine Medications Medication SIG (Take, Route, Frequency, Duration) Notes Start Date End Date Status Vitamin B-12 1000 MCG TAKE 1 TABLET BY M OUTH ONCE DAILY Oral; Duration: 90 Days Active Citrucel 500 MG TAKE 2 TABLETS BY MO UTH ONCE DAILY Oral; Duration: 45 Days Active Ramipril 10 MG 1 capsule Orally Onc e a day; Duration: 30 days Active Labetalol HCl 200 MG Take 1 tablet by mo uth twice daily; Duration: 30 Active Timolol Maleate 0.5 % INSTILL 1 DROP INT O BOTH EYES ONCE DAILY Ophthalmic; Duration: 75 Days Active Rosuvastatin Calcium 20 MG TAKE 1 TABLET BY MOUTH AT BEDTIME; Duration: 90 Active Vyzulta 0.024 % 1 drop into affected eye in the evening Ophthalmic Once a day Active Azelastine HCl 0.1 % 2 puffs (1 spray in each nostril) Nasally Twice a day; Duration: 30 days 05/02/2024 Active Vitamin D3 50 MCG (2000 UT) 2 tablets Or ally Once a day; Duration: 90 days 05/02/2024 01/26/2025 Active Cetirizine HCl 10 MG TAKE 1 TABLET BY MO UTH AT BEDTIME; Duration: 30 Active Ventolin HFA 108 (90 Base) MCG/ACT INHALE 2 PUFFS BY MOUTH EVERY 4 TO 6 HOURS NEEDED FOR SHORTNESS OF BREATH FOR WHEEZING Inhalation; Duration: 17 Days Active Senna 8.6 MG TAKE 1 TABLET BY MAICOL AT BEDTIME Oral; Duration: 90 Days Active Farxiga 10 MG 1 tablet Orally Once a day; Duration: 30 days Active Docusate Sodium 100 MG TAKE 1 CAPSULE BY MOUTH AT BEDTIME Oral; Duration: 90 Days Active Levothyroxine Sodium 75 MCG 1 tablet in the morning on an empty stomach Oral Once a day; Duration: 90 days Active Immunizations Vaccine Route Administration Date Status Comme nts Influenza, seasonal, injecta ble, 6-35 months Unknown 11/26/2017 Administered Influenza, seasonal, injecta ble, 6-35 months Unknown 11/14/2018 Administered [id number]-39-Ztfcfjs Vaccine Unknown 05/10/2020 Administere d ALADP-75-Bvbfgqs Vaccine Unknown 06/07/2020 Administere d IFTIJ-08-Tzsgenk Vaccine Unknown 12/09/2020 Administere d MAJDL-13-Jsldvwa Vaccine Unknown 07/18/2021 Administere d COVID-19 Moderna BiValent Booster Unknown 01/29/2022 Ad ministered COVID-19 Moderna BiValent Booster Unknown 07/08/2022 Ad ministered COVID Spikevax Moderna Unknown 11/04/2022 Administered COVID Spikevax Moderna Unknown 11/10/2023 Administered *Tdap Unknown 03/23/2019 Administered *Shingrix Unknown 11/17/2023 Administered *Shingrix Unknown 01/21/2024 Administered *PREVNAR 20 Unknown 10/29/2021 Administered *Koriuylht-Vooywjr-Aqsl Dose-65+ Unknown 10/16/2016 Adm inistered *Hscooreoz-Larlcfq-Dgyh Dose-65+ Unknown 11/10/2023 Adm inistered *Influenza, High Dose Season al, Quadrivatent Unknown 11/04/2019 Administered *Influenza, High Dose Season al, Quadrivatent Unknown 10/29/2021 Administered *Influenza, High Dose Season al, Quadrivatent Unknown 11/04/2022 Administered Pneumococcal polysaccharide PCV 13 Unknown 10/16/2016 A dministered RSV-Arexby Unknown 12/04/2022 Administered Social History AUDIT-C (Standard) Question Answer Notes Did you have a drink containing alcohol in the p ast year? No Points 0 Interpretation Negative Problems Problem Type SNOMED Code ICD Code Onset Dates Problem Status W/U Status Risk Notes Problem Malignant neoplasm of lower lobe, right bronchus or lung (C34.31) Active confirmed Problem Leukocytosis (239675844) Elevated white blood cell count, unspecified (D72.829) Active confirmed Problem Hypothyroidism (48498075) Hypothyroidism, unspecified (E03.9) Active confirmed Problem Vitamin D deficiency (20621009) Vitamin D deficiency, unspecified (E55.9) Active confirmed Problem Mixed hyperlipidemia (030896750) Mixed hyperlipidemia (E78.2) Active confirmed Problem Tobacco user (583191972) Nicotine dependence, cigarettes, in remission (F17.211) Active confirmed Problem Bilateral acute angle-closure glaucoma (732828066602084) Acute angle-closure glaucoma, bilateral (H40.213) Active confirmed Problem Chronic kidney disease due to hypertension (235911926891101) Hypertensive chronic kidney disease with stage 1 through stage 4 chronic kidney disease, or unspecified chronic kidney disease (I12.9) Active confirmed Problem Aortic valve disorder (1888874) Nonrheumatic aortic (valve) stenosis with insufficiency (I35.2) Active confirmed Problem Chronic diastolic heart failure (695573559) Chronic diastolic (congestive) heart failure (I50.32) Active confirmed Problem Left carotid artery occlusion (177918365637854) Occlusion and stenosis of left carotid artery (I65.22) Active confirmed Problem Occlusion and stenosis of multiple and bilateral cerebral arteries (091578402) Occlusion and stenosis of bilateral carotid arteries (I65.23) Active confirmed Problem Chronic obstructive pulmonary disease (90860937) Chronic obstructive pulmonary disease, unspecified (J44.9) Active confirmed Problem Chronic kidney disease stage 1 (743517682) Chronic kidney disease, stage 1 (N18.1) Active confirmed Problem History of malignant neoplasm of skin (situation) (738503468) Personal history of other malignant neoplasm of skin (Z85.828) Active confirmed Vital Signs Heart Rate 70 /min 08/17/2024 Temperature 96.6 degrees Fahrenheit 08/17/2024 Blood pressure diastolic 62 mm Hg 08/17/2024 Oximetry 96 % 08/17/2024 Height 60.5 in 08/17/2024 Blood pressure systolic 118 mm Hg 08/17/2024 Weight 108 lbs 08/17/2024 BMI 20.74 kg/m2 08/17/2024 Encounters Encounter Location Date Provider Diagnosis Venice Martínez MD [address] [id number] 08/17/2024 Divya Alexander Chronic diastolic (congestive) heart failure I50.32 ; Hypothyroidism, unspecified E03.9 ; Hypertensive chronic kidney disease with stage 1 through stage 4 chronic kidney disease, or unspecified chronic kidney disease I12.9 ; Nonrheumatic aortic (valve) stenosis with insufficiency I35.2 ; Occlusion and stenosis of left carotid artery I65.22 and Malignant neoplasm of lower lobe, right bronchus or lung C34.31 Venice Martínez MD [address] [id number] 03/15/2024 Divya Alexander Encounter for screen ing [...] angle-closure glaucoma, bilateral H40.213 Venice Martínez MD [address] [id number] 05/02/2024 Divya Alexander Hypertensive chronic kidney disease [...] disease, stage 1 N18.1 Venice Martínez MD [address] [id number] 06/19/2024 Divya Alexander Hypertensive chronic kidney disease with stage 1 through stage 4 chronic kidney disease, or unspecified chronic kidney disease I12.9 ; Chronic kidney disease, stage 1 N18.1 ; Nasal congestion R09.81 ; Postnasal drip R09.82 ; Personal history of other diseases of the respiratory system Z87.09 ; Occlusion and stenosis of left carotid artery I65.22 ; Localized swelling, mass and lump, lower limb, bilateral R22.43 and Other nonthrombocytopenic purpura D69.2 Venice Martínez MD [address] [id number] 07/26/2024 Divya Alexander Encounter for genera l adult medical examination without abnormal findings Z00.00 ; Hypertensive chronic kidney disease with stage 1 through stage 4 chronic kidney disease, or unspecified chronic kidney disease I12.9 ; Chronic kidney disease, stage 1 N18.1 ; Mixed hyperlipidemia E78.2 ; Personal history of other diseases of the respiratory system Z87.09 ; Occlusion and stenosis of left carotid artery I65.22 ; Localized swelling, mass and lump, lower limb, bilateral R22.43 ; Chronic diastolic (congestive) heart failure I50.32 ; Chronic obstructive pulmonary disease, unspecified J44.9 ; Personal history of other malignant neoplasm of skin Z85.828 ; Hypothyroidism, unspecified E03.9 ; Acute angle-closure glaucoma, bilateral H40.213 ; Nicotine dependence, cigarettes, in remission F17.211 ; Vitamin D deficiency, unspecified E55.9 ; Encounter for screening for malignant neoplasm of colon Z12.11 ; Encounter for screening mammogram for malignant neoplasm of breast Z12.31 ; Encounter for screening for osteoporosis Z13.820 ; Asymptomatic menopausal state Z78.0 ; Encounter for screening for cardiovascular disorders Z13.6 ; Encounter for immunization Z23 ; Encounter for antibody response examination Z01.84 and Encounter for screening for other viral diseases Z11.59 Venice Martínez MD [address] [id number] 11/23/2023 Divya Martínez MD [address] [id number] 03/15/2024 Divya Martínez MD [address] [id number] 03/20/2024 Divya Alexander Veince Martínez MD PC [address] [facility] [address] [place] [address] [id number] 03/22/2024 Divya Alexander Venice Martínez MD [facility] [address] [facility] [address] [place] [address] [id number] 04/03/2024 Divya Alexandermalia Martínez MD PC [address] [facility] [address] [place] [address] [id number] 04/18/2024 Divya Alexander Venice Martínez MD PC [address] [facility] [address] [place] [address] [id number] 05/02/2024 Divya Alexander Occlusion and stenos is of bilateral carotid arteries I65.23 Venice Martínez MD PC [address] [facility] [address] [place] [address] [id number] 05/08/2024 Divya Martínez MD PC [address] [facility] [address] [place] [address] [id number] 05/12/2024 Divya Alexander Venice Martínez MD PC [address] [facility] [address] [place] [address] [id number] 05/15/2024 Divya Martínez MD PC [address] [facility] [address] [place] [address] [id number] 05/19/2024 Divya Alexandermalia Martínez MD PC [address] [facility] [address] [place] [address] [id number] 06/02/2024 Divya Martínez MD PC [address] [facility] [address] [place] [address] [id number] 06/09/2024 Divya Martínez MD PC [address] [facility] [address] [place] [address] [id number] 06/13/2024 Divya Martínez MD PC [address] [facility] [address] [place] [address] [id number] 06/18/2024 Divya Alexander Venice Martínez MD PC [address] [facility] [address] [place] [address] [id number] 06/21/2024 Divya Alexander Elevated white blood cell count, unspecified D72.829 and Chronic diastolic (congestive) heart failure I50.32 Venice Martínez MD PC [address] [facility] [address] [place] [address] [id number] 06/27/2024 Divya Martínez MD PC [address] [facility] [address] [place] [address] [id number] 07/26/2024 Divya Martínez MD PC [address] [facility] [address] [place] [address] [id number] 08/05/2024 Divya Alexander Chronic diastolic (congestive) heart failure I50.32 ; Hypothyroidism, unspecified E03.9 ; Hypertensive chronic kidney disease with stage 1 through stage 4 chronic kidney disease, or unspecified chronic kidney disease I12.9 and Nonrheumatic aortic (valve) stenosis with insufficiency I35.2 Venice Martínez MD [address] [id number] 08/07/2024 Divya Alexander Nicotine dependence, cigarettes, in remission F17.211 Venice Martínez MD [address] [id number] 08/09/2024 Divya Alexander Venice Martínez MD [address] [id number] 08/14/2024 Divya Alexander Venice Martínez MD [address] [id number] 08/23/2024 Divya Alexander Acute vaginitis N76. 0 Venice Martínez MD [address] [id number] 08/24/2024 Divya Alexander Malignant neoplasm o f lower lobe, right bronchus or lung C34.31 Assessments Encounter Date Diagnosis (ICD Code) Assessment Notes Treatment Notes Treatment Clinical Notes Section Notes 03/15/2024 Vitamin D deficiency , unspecified (ICD-10 - E55.9) Will obtain labs to assess for vitamin D deficiency 03/15/2024 Encounter for screening for lipoid disorders (ICD-10 - Z13.220) Will obtain labs to assess for hyperlipidemia. Patient states she was previously medicated for elevated cholesterol but has not been treated for years. 05/02/2024 Vitamin D deficiency , unspecified (ICD-10 - E55.9) Discussed with patient [...] agreeable with this plan 05/02/2024 Occlusion and stenos is of bilateral carotid arteries (ICD-10 - I65.23) 06/19/2024 Hypertensive chronic kidney disease with stage 1 through stage 4 chronic kidney disease, or unspecified chronic kidney disease (ICD-10 - I12.9) Blood pressure stable during today's visit. Patient to remain on current medication regimen with follow-up in July to reassess blood pressure 06/19/2024 Chronic kidney disease, stage 1 (ICD-10 - N18.1) GFR was stable on most recent lab work. Will obtain an updated GFR level at this time 06/21/2024 Elevated white blood cell count, unspecified (ICD-10 - D72.829) 06/21/2024 Chronic diastolic (congestive) heart failure (ICD-10 - I50.32) 07/26/2024 Hypertensive chronic kidney disease with stage 1 through stage 4 chronic kidney disease, or unspecified chronic kidney disease (ICD-10 - I12.9) Blood pressure elevated during today's visit. Will obtain updated lab work and will also increase patient's ramipril to 10 mg daily for further improvement in her hypertension. Patient to follow-up in 4 to 6 weeks to reassess blood pressure since making this adjustment 07/26/2024 Encounter for genera l adult medical examination without abnormal findings (ICD-10 - Z00.00) General healthcare up-to-date. Will obtain updated routine labs. Healthcare proxy and MOLST form package given for review and completion. AWV in 1 year 08/05/2024 Hypothyroidism, unspecified (ICD-10 - E03.9) 08/05/2024 Chronic diastolic (congestive) heart failure (ICD-10 - I50.32) 08/07/2024 Nicotine dependence, cigarettes, in remission (ICD-10 - F17.211) 08/17/2024 Hypothyroidism, unspecified (ICD-10 - E03.9) Most recent TSH level was noted to be low and medications were adjusted. Plan will be for patient to remain on current dosing and will plan to repeat labs at her September follow-up to ensure TSH level is now within normal range 08/17/2024 Chronic diastolic (congestive) heart failure (ICD-10 - I50.32) Patient's most recent echo did confirm grade 1 diastolic dysfunction. Patient is losing weight and due to this she is not a candidate for GLP medication. Patient to continue Farxiga as well as her beta mari for additional support with underlying heart failure. May also consider additional medications such as finerenone in the future if blood pressure does not remain stable on current medication regimen 08/23/2024 Acute vaginitis (ICD-10 - N76.0) 08/24/2024 Malignant neoplasm o f lower lobe, right bronchus or lung (ICD-10 - C34.31) 08/17/2024 Hypertensive chronic kidney disease with stage 1 through stage 4 chronic kidney disease, or unspecified chronic kidney disease (ICD-10 - I12.9) Blood pressure greatly improved during today's visit. Patient to remain on current medication regimen with follow-up monthly to ensure blood pressure remains stable on current regimen 08/05/2024 Hypertensive chronic kidney disease with stage 1 through stage 4 chronic kidney disease, or unspecified chronic kidney disease (ICD-10 - I12.9) 07/26/2024 Chronic kidney disease, stage 1 (ICD-10 - N18.1) GFR was stable on most recent lab work. Will obtain an updated GFR level at this time 06/19/2024 Nasal congestion (ICD-10 - R09.81) Patient continues to have nasal congestion and suspect that this is related to seasonal allergies. Patient to continue on azelastine nasal spray for further assistance of nasal congestion 05/02/2024 Mixed hyperlipidemia (ICD-10 - E78.2) Spent time discussing patient's elevated lipid panel as well as her Grimm score of 10.3%. Will begin statin therapy to further improve her LDL and discussed with patient that a goal of 70 or less for an LDL is what I am hoping to achieve. Patient also states she underwent bilateral carotid artery scans through [email or web address] (pt unsure when these were completed) and will try and obtain these results for our records to determine if patient requires any further interventions or repeat imaging depending on results 03/15/2024 Encounter for screening for cardiovascular disorders (ICD-10 - Z13.6) Blood pressure with elevation noted during today's visit. Will obtain labs to assess for additional cardiac risk such as hyperlipidemia and hyperglycemia 03/15/2024 Functional diarrhea (ICD-10 - K59.1) Patient continues to have episodes of loose stool and discussed with patient that obtaining lab work would be helpful to determine if she has any TSH abnormalities given her underlying hypothyroidism. His thyroid is without significant findings patient may benefit from further gastroenterology workup with stool samples and motility study 05/02/2024 Impaired fasting glucose (ICD-10 - R73.01) Reviewed with patient her impaired fasting glucose on recent lab work. Will obtain updated lab work including a hemoglobin A1c to further assess 06/19/2024 Postnasal drip (ICD- 10 - R09.82) See plan above.Patient to continue using azelastine nasal spray and would also like patient to begin a Zyrtec tablet daily at bedtime for further assistance of nasal congestion and postnasal drip 07/26/2024 Mixed hyperlipidemia (ICD-10 - E78.2) Previous LDL noted to be int he 130's and pt was started on Rosuvastain. Will obtain updated labs to check level to verify adequate control 08/05/2024 Nonrheumatic aortic (valve) stenosis with insufficiency (ICD-10 - I35.2) 08/17/2024 Nonrheumatic aortic (valve) stenosis with insufficiency (ICD-10 - I35.2) Reviewed with patient her echocardiogram which did reveal severe aortic stenosis. Suspect that this may be the underlying factor for her shortness of breath with exertion, although pt with additonal concerns such as a suspicious right lower lung lesion/mass, COPD, and heart failure. Patient was evaluated by cardiology with suggestion to move forward with a TAVR procedure and patient is pending further cardiovascular imaging prior to scheduling this TAVR procedure. Encouraged patient to reach out to cardiology as well to notify them of findings on CT scan of chest as patient is going to obtain her PET scan prior to completing this TAVR procedure 07/26/2024 Personal history of other diseases of the respiratory system (ICD-10 - Z87.09) Patient was recently treated for pneumonia with Augmentin as well as prednisone. Symptoms have overall improved per patient, but she does have an intermittent cough. Patient states she recently completed an Echo and would like to review the results as her residual cough may be related to CHF given elevated proBNP level and not caused by her previous pneumonia infection 08/17/2024 Occlusion and stenos is of left carotid artery (ICD-10 - I65.22) Patient recently underwent a repeat carotid ultrasound and there was findings of greater than 90% stenosis in the left carotid artery. Patient was recently evaluated by cardiology who discussed not only left carotid artery stenosis but also aortic stenosis which patient will require a TAVR procedure to correct. Patient does not have any procedure dates and encourage patient to follow-up with cardiology as scheduled 06/19/2024 Personal history of other diseases of the respiratory system (ICD-10 - Z87.09) Patient was recently treated for pneumonia with Augmentin as well as prednisone. Symptoms have overall improved per patient but she does have an intermittent cough. Patient to continue using her Trelegy for additional support and management of her cough. Plan will be to have close follow-up in office and she will be seen in July to reassess. Patient also aware to follow-up sooner should she feel as though her cough has worsened or she has any new concerns regarding her breathing 05/02/2024 Functional diarrhea (ICD-10 - K59.1) Reviewed [...] workup or further imaging and motility studies 03/15/2024 Chronic obstructive pulmonary disease, unspecified (ICD-10 - J44.9) Patient with an underlying history of COPD and is followed by pulmonology through [facility]. Patient states that she does use her [...] reassess symptoms since starting this Trelegy inhaler 03/15/2024 Hypertensive chronic kidney disease with stage [...] agreeable to this plan 05/02/2024 Encounter for antibo dy response examination (ICD-10 - Z01.84) Will obtain an MMR titer to ensure immunity 06/19/2024 Occlusion and stenos is of left carotid artery (ICD-10 - I65.22) Patient recently underwent a repeat carotid ultrasound patient states she did have imaging in the past but was not made aware of the results. There was findings of greater than 90% stenosis in the left carotid artery. Patient would benefit from a consult with cardiology to discuss stent placement 08/17/2024 Malignant neoplasm o f lower lobe, right bronchus or lung (ICD-10 - C34.31) Patient recently underwent a CT scan of chest given smoking history. Spent much time discussing with the patient, as well as her friend who was present during the visit. Reviewed with patient that there is a greater than 3 cm mass that is suspected as a neoplasm in the right lower lobe. Discussed that this may be an underlying factor in patient's shortness of breath with exertion, although heart failure and aortic stenosis are also factors that are causing her to be symptomatic. Patient is aware that further imaging with a PET scan is warranted to determine if there are any other areas of concern given the size and location of this lesion in her right lower lobe. 07/26/2024 Occlusion and stenos is of left carotid artery (ICD-10 - I65.22) Patient recently underwent a repeat carotid ultrasound patient states she did have imaging in the past but was not made aware of the results. There was findings of greater than 90% stenosis in the left carotid artery and pt is pending and apt with cardiology to discuss stent placement 07/26/2024 Localized swelling, mass and lump, lower limb, bilateral (ICD-10 - R22.43) Patient shares previous concerns of bilateral lower extremity swelling. There are no findings of lower extremity swelling noted during today's visit. Pt did complete an echo, but there are no results to review at today's visit but will request results to review given concerns this may be related to CHF given her elevated proBNP level as well. Encouraged patient to wear compression stockings, elevate her legs, and increase her water intake. 06/19/2024 Localized swelling, mass and lump, lower limb, bilateral (ICD-10 - R22.43) Patient shares concerns of bilateral lower extremity swelling, more since she has been discharged home from the hospital. Encouraged patient to wear compression stockings, elevate her legs, and increase her water intake. Will obtain lab work including a proBNP level and would like patient to complete an echocardiogram for further evaluation as well given her shortness of breath with exertion and intermittent episodes of lower extremity swelling. Discussed with patient that her cough may very well be from her recent pneumonia diagnosis but would like to assess for underlying congestive heart failure given these additional symptoms of concern 05/02/2024 Encounter for screening for other viral diseases (ICD-10 - Z11.59) Per screening guidelines we will obtain a hep C status 03/15/2024 Personal history of other malignant neoplasm of skin (ICD-10 - Z85.828) Patient has a history of basal cell carcinoma noted to her nose, which was removed. 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 Patient states she has been unable to see this provider as her previous PCP, [facility], was unable to refer her given their [facility] medicine format 03/15/2024 Hypothyroidism, unspecified (ICD-10 - E03.9) Patient with a longstanding history of hypothyroidism. Will obtain an updated TSH level to ensure adequate TSH levels on current regimen 05/02/2024 Asymptomatic menopausal state (ICD-10 - Z78.0) Reviewed previous records and patient states she was previously treated with Prolia injections before 2019. She states she was told she had osteoporosis. Reviewed records and patient's most recent DEXA scan in 2021 revealed osteopenia. Patient is due for an updated DEXA scan to reassess and we will order that at this time 06/19/2024 Other nonthrombocytopenic purpura (ICD-10 - D69.2) Patient does have multiple areas of bruising post IV placement and lab draws while she was in the hospital. Discussed with patient that these areas may fade but may not resolved. Some areas on her forearms do look like senile purpura. Patient aware to follow-up should she have any worsening appearances or pain to areas 07/26/2024 Chronic diastolic (congestive) heart failure (ICD-10 - I50.32) See plan above. 07/26/2024 Chronic obstructive pulmonary disease, unspecified (ICD-10 - J44.9) Patient with an underlying history of COPD and is followed by pulmonology through [facility]. Patient feels her breathing has greatly improved with use of Trelegy and pt to remain on current medication regimen 05/02/2024 Nasal congestion (ICD-10 - R09.81) Patient [...] any improvement with her azelastine nasal spray 03/15/2024 Acute angle-closure glaucoma, bilateral (ICD-10 - H40.213) Patient with a history of bilateral glaucoma and is followed by her just. Patient to remain on current medication regimen and follow-up with specialist as scheduled to reassess eye pressures and review persistent symptoms of concern 05/02/2024 Chronic kidney disease, stage 1 (ICD-10 - N18.1) Most recent GFR noted to be 90 07/26/2024 Personal history of other malignant neoplasm of skin (ICD-10 - Z85.828) Patient has a history of basal cell carcinoma noted to her nose, which was removed. Patient to continue seeing Dermatology as scheduled for annual skin checks 07/26/2024 Hypothyroidism, unspecified (ICD-10 - E03.9) Patient with a longstanding history of hypothyroidism. Will obtain an updated TSH level to ensure adequate TSH levels on current regimen 07/26/2024 Acute angle-closure glaucoma, bilateral (ICD-10 - H40.213) Patient with a history of bilateral glaucoma. Patient to remain on current medication regimen and follow-up with specialist as scheduled to reassess eye pressures and review persistent symptoms of concern 07/26/2024 Nicotine dependence, cigarettes, in remission (ICD-10 - F17.211) Patient with a history of smoking history of 52 years, quit 15 years ago. Pt would benefit from completing a Low Dose Ct Scan due to her previous long nicotine use 07/26/2024 Vitamin D deficiency , unspecified (ICD-10 - E55.9) Will check level as adjunct evaluation for fall risk and possibly dementia 07/26/2024 Encounter for screening for malignant neoplasm of colon (ICD-10 - Z12.11) Up-to-date on colon cancer screening per patient as she states she completed her Cologuard within the past 3 years. Will try and obtain these results from [facility] to ensure she is up-to-date on colon cancer screenings 07/26/2024 Encounter for screening mammogram for malignant neoplasm of breast (ICD-10 - Z12.31) Patient without a breast cancer history and has aged out of continued mammograms at this time 07/26/2024 Encounter for screening for osteoporosis (ICD-10 - Z13.820) Up-to-date on osteoporosis screening 07/26/2024 Asymptomatic menopausal state (ICD-10 - Z78.0) See plan above 07/26/2024 Encounter for screening for cardiovascular disorders (ICD-10 - Z13.6) Blood pressure with slight elevated today in office. Will check for comorbidity of hyperlipidemia and hyperglycemia and use this data to further assess risk 07/26/2024 Encounter for immunization (ICD-10 - Z23) Vaccines up-to-date 07/26/2024 Encounter for antibo dy response examination (ICD-10 - Z01.84) Will obtain an MMR titer 07/26/2024 Encounter for screening for other viral diseases (ICD-10 - Z11.59) Will screen for hepatitis C as is the general recommendation 07/26/2024 Other This note was created with voice dictation recognition software and may contain errors of grammar and syntax Plan Of Treatment Pending Test Test Name Order Date COLOGUARD 09/24/[address] Skull to Thighs 08/24/2024 Next Appt Details Provider Name:Divya Alexander , 09/21/2024 02:30:00 PM, [address] [place] [address], [address], [phone], Provider Name:Divya Alexander , 08/02/2025 10:30:00 AM, [address] [place] [address], [address], [phone], Insurance Providers Payer Name Payer Address Payer Phone Subscriber Number Group Number Insured Name Patient Relationship to Insured Coverage Start Date Coverage End Date MEDICARE [address] [place] [phone] [id number] Candi Mojica Self - patient is the insured [facility] [address] [place] [id number] Candi Mojica Self - patient is the insured Medical (General) History Medical History History ICD Code high blood pressure skin cancer (nose, in the 90's) COPD Glaucoma hypothyroidism Surgical History Surgery Date(Month/Year) [place] in right hip 2017 tonsillectomy Hospitalization History Reason Date(Month/Year) weak/fatigue 06/2024 pneumonia 06/2024
--- OUTSIDE RECORDS SUMMARY | 2024-09-01 12:11 | XMS_ITS | Clinical Summary ---
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 4 Active azelastine (ASTELIN) 137 mcg (0.1 %) nasal spray Administer 1 spray into each nostril 2 (two) times a day. 5 Active cholecalciferol (VITAMIN D-3) 50 mcg (2,000 unit) tablet Take 2 tablets (4,000 Units total) by mouth 1 (one) time each day. 5 Active cyanocobalamin (VITAMIN B-12) 1,000 mcg tablet Take 1 tablet (1,000 mcg total) by mouth 1 (one) time each day. 5 Active docusate sodium (COLACE) 100 mg capsule Take 1 capsule (100 mg total) by mouth 1 (one) time each day. at bedtime 5 Active fluticasone propion-salmete roL (AIRDUO RESPICLICK) 232-14 mcg/actuation aerosol powdr breath activated inhaler Inhale 1 puff by mouth 2 (two) times a day. 5 Active labetaloL (NORMODYNE) 200 mg tablet Take 1 tablet (200 mg total) by mouth 2 (two) times a day. 5 Active latanoprost (XALATAN) 0.005 % ophthalmic solution Administer 1 drop into both eyes at bedtime. at bedtime 4 Active levothyroxine (SYNTHROID, LEVOTHROID) 88 mcg tablet Take 1 tablet (88 mcg total) by mouth 1 (one) time each day at the same time. Active CitruceL 500 mg tablet Take 2 tablets by mouth 1 (one) time each day. 5 Active ramipriL (ALTACE) 5 mg capsule Take 1 capsule (5 mg total) by mouth 1 (one) time each day. 5 Active rosuvastatin (CRESTOR) 20 mg tablet Take 1 tablet (20 mg total) by mouth 1 (one) time each day. at bedtime. 5 Active senna 8.6 mg tablet Take 1 tablet (8.6 mg total) by mouth 1 (one) time each day. at bedtime. 5 Active Active Problems Problem Noted Date Diagnosed Date PNA (pneumonia) 06/11/2024 Sepsis due to group B Strept ococcus with acute respiratory failure ([facility] V24, [facility] V28) 06/11/2024 COPD exacerbation [place] [place] [facility] [place] 03/2024 Chest pain 06/08/2024 COPD (chronic obstructive pu lmonary disease) [place] [place] [facility] [place] 06/08/2024 Hypothyroid 06/08/2024 HTN (hypertension) 06/08/2024 Carotid stenosis, asymptomatic, bilateral 2024 Glaucoma 06/08/2024 Encounters Date Type Department Care Team Description 06/08/2024 3:28 PM EDT - 06/11/2024 11:14 AM EDT Hospital Encounter [facility] Urology Unit [address] [place] [address] [phone] Bev Escamilla, Cy Vang MD Maduakor, Emmanuel C, MD Alam, Aroosa, MD Sepsis due to group B Streptococcus with acute hypercapnic respiratory failure without septic shock ([facility] V24, [facility] V28) (Primary Dx); COPD exacerbation ([facility] V24, [facility] V28); Pneumonia of right lung due to infectious organism, unspecified part of lung Discharge Disposition: Home-Health Care Svc from Last 3 Months Medical History Medical History Date Comments COPD (chronic obstructive pulmonary disease) ([facility] S/HCC V24, [facility] V28) Social History Tobacco Use Types Packs/Day Years Used Date Smoking Tobacco: Former Cigarettes Q uit: 1970 Smokeless Tobacco: Never Tobacco Cessation:Counseling Given: No Alcohol Use Standard Drinks/Week Comments Never 0 (1 standard drink = 0.6 oz pur e alcohol) Housing Instability Answer Date Recorde d Are you worried that in the next 2 months you may not have stable housing? Patient declined 06/08/2024 Food Access & Nutrition Answer Date Rec orded Do you have access to a vari ety of food including fruits and vegetables? Patient declined 06/08/2024 Health Literacy Answer Date Recorded How often do you need to hav e someone help you when you read instructions, pamphlets, or other written material from your doctor or pharmacy? Patient declined 06/08/2024 Caregiver: How often do you need to have someone help you when you read instructions, pamphlets, or other written material from your doctor or pharmacy? Not on file 025 Financial Risk Answer Date Recorded How hard is it for you to pa y for the very basics like food, housing, medical care, and air conditioning / heating? Patient declined 06/08/2024 Transportation Answer Date Recorded Has the lack of transportati on kept you from meetings, work, or from getting things needed for daily living? Patient declined 06/08/2024 Has the lack of transportati on kept you from medical appointments or from getting medications? Patient declined 06/08/2024 Social Isolation Answer Date Recorded How often do you feel lonely or isolated from those around you? Patient declined 06/08/2024 Food Risk Answer Date Recorded Within the past 12 months we worried whether our food would run out before we got money to buy more. Patient declined 025 Within the past 12 months th e food we bought just didn't last and we didn't have money to get more. Patient declined 02/2024 Dependent Care Answer Date Recorded Do you need help finding or paying for care for your loved ones. For example, children's zoo caretaker or elderly care for an older adult? Patient declined 06/08/2024 Education Answer Date Recorded Do you think completing more education or training, like finishing a GED, going to college, or learning a trade, would be helpful for you? Patient declined 06/08/2024 Employment and Income Answer Date Recor ded During the last four weeks, have you been actively looking for work? Patient declined 06/08/2024 Living Situation Answer Date Recorded What is your living situation? 0 06/08/2024 Interpersonal Safety Answer Date Record ed Physical Abuse 06/08/2024 Verbal Abuse 06/08/2024 Comments No Sex and Gender Information Value Date Recorded Sex Assigned at Female 05/29/2024 8:41 AM EDT Legal Sex Female 11:46 AM EST Gender Identity Not on file Sexual Orientation Not on file Obstetrics History Last Filed Vital Signs Vital Sign Reading Time Taken Comments Blood Pressure 167/69 06/11/2024 8:19 AM EDT Pulse 66 06/11/2024 8:19 AM EDT Temperature 36.6 C (97.8 F) 06/11/2024 8:19 AM EDT Respiratory Rate 18 06/11/2024 8:19 AM EDT Oxygen Saturation 95% 06/11/2024 8:50 AM EDT Inhaled Oxygen Concentration - - Weight 51.3 kg (113 lb) 06/08/2024 3:42 PM EDT Height 154.9 cm (5' 1 ) 06/08/2024 3:42 PM EDT Body Mass Index 21.35 06/08/2024 3:42 PM EDT Plan of Treatment Health Maintenance Due Date Last Done Comments Cholesterol Screening (Lipid Panel) 01/06/2022 Hepatitis C Screening 01/06/2022 Medicare Annual Wellness Visit 01/06/2022 Osteoporosis Screening (Bone Density Screening) 01/06/2022 Depression Screening 02/09/2024 COVID-19 Vaccine (9 - Moderna risk season) 2024 11/10/2023, 11/04/2022, 07/08/2022, Additional history exists Influenza Vaccine (#1) 2024 , 11/04/2022, 10/29/2021, Additional history exists Social Influencers of Health Screening 06/08/2025 06/08/2024 Falls Risk Assessment 06/11/2025 06/11/2024 Hypertension/CHF/CAD Annual BMP Blood Test 06/11/2025 06/11/2024, 06/10/2024, 06/09/2024, Additional history exists DTaP,Tdap,and Td Vaccines (2 - Td or Tdap) 03/23/2029 03/23/2019 Pneumococcal Vaccine: 50+ Years Completed 10/29/2021, 10/16/2016 RSV Immunization Adult Patients Completed 12/04/2022 Zoster Vaccines Completed 01/21/2024, 10/2023, 09/26/2008 HIB Vaccines Aged Out No longer eligi [...] to complete this topic RSV Immunization Patients Under 20 months Aged Out No longer eligible based on patient's age to complete this topic Varicella Vaccines Aged Out No longer eligible based on patient's age to complete this topic Procedures Procedure Name Priority Date/Time Associated Diagnosis Comments RBC MORPHOLOGY REVIEW Routine 06/11/2024 6:41 AM EDT CBC WITH AUTO DIFFERENTIAL Routine 06/11/2024 6:41 AM EDT MAGNESIUM Timed 06/11/2024 6:41 AM EDT CBC AND DIFFERENTIAL Routine 06/11/2024 6:41 AM EDT BASIC METABOLIC PANEL Routine 06/11/2024 6:41 AM EDT CBC WITH AUTO DIFFERENTIAL Routine 06/10/2024 5:29 AM EDT MAGNESIUM Timed 06/10/2024 5:29 AM EDT CBC AND DIFFERENTIAL Routine 06/10/2024 5:29 AM EDT BASIC METABOLIC PANEL Routine 06/10/2024 5:29 AM EDT LAVENDER - EDTA Routine 06/09/2024 8:07 AM EDT EXTRA TUBES Routine 06/09/2024 8:07 AM EDT SST - GOLD Routine 06/09/2024 8:07 AM EDT EXTRA TUBES Routine 06/09/2024 8:07 AM EDT LACTATE STAT 06/09/2024 8:07 AM EDT CBC WITH AUTO DIFFERENTIAL Routine 06/09/2024 6:10 AM EDT BASIC METABOLIC PANEL Routine 06/09/2024 6:10 AM EDT CBC AND DIFFERENTIAL Routine 06/09/2024 6:10 AM EDT ECG ANNOTATED 06/09/2024 TROPONIN I HIGH SENSITIVITY Routine 06/08/2024 9:56 PM EDT CULTURE BLOOD STAT 06/08/2024 6:24 PM EDT LACTATE STAT 06/08/2024 6:10 PM EDT CULTURE BLOOD STAT 06/08/2024 6:10 PM EDT TROPONIN I HIGH SENSITIVITY STAT 06/08/2024 5:14 PM EDT RESPIRATORY VIRUS PANEL MOLECULAR STUDY STAT 06/08/2024 4:11 PM EDT XR CHEST 1 VIEW STAT 06/08/2024 4:08 PM EDT CBC WITH AUTO DIFFERENTIAL STAT 06/08/2024 3:55 PM EDT TROPONIN I HIGH SENSITIVITY STAT 06/08/2024 3:55 PM EDT B-TYPE NATRIURETIC PEPTIDE STAT 06/08/2024 3:55 PM EDT BASIC METABOLIC PANEL STAT 06/08/2024 3:55 PM EDT CBC AND DIFFERENTIAL STAT 06/08/2024 3:55 PM EDT ECG 12-LEAD STAT 06/08/2024 3:47 PM EDT from Last 3 Months Results * (ABNORMAL) RBC morphology review (06/11/2024 6:41 AM EDT) Rbc Morphology See comment( A) Consistent with indices, Normal for LAB HEMETOLOGY METHOD 06/11/2024 8:02 AM EDT [facility] Comment:RBC: Morphology agre es with CBC Platelet Morphology - WAM See Note(A) Normal LAB HEMETOLOGY METHOD 06/11/2024 8:02 AM EDT [facility] Comment:PLT: Normal Blood Venous blood specimen / Unknown Venipuncture / Unknown 06/11/2024 6:41 AM EDT 06/11/2024 6:48 AM EDT Tamie RIZO LAB BLOOD ORDERABLES Final Result [facility] [address] [place] [address], [place] [phone] * (ABNORMAL) CBC auto differential (06/11/2024 6:41 AM EDT) Only the most recent of4 resultswithin the time period is included. WBC 15.6(H) 4.8 - 10.8 K/mcL LAB HEMETOLOGY METHOD 06/11/2024 8:02 AM [facility] RBC 3.90 3.80 - 4.80 M/mcL LAB HEMETOLOGY METHOD 06/11/2024 8:02 AM [facility] Hemoglobin 11.4(L) 11.5 - 16.0 g/dL LAB HEMETOLOGY METHOD 06/11/2024 8:02 AM [facility] Hematocrit 35.4 35.0 - 47.0 % LAB HEMETOLOGY METHOD 06/11/2024 8:02 AM [facility] MCV 90.3 79.0 - 98.0 FL LAB HEMETOLOGY METHOD 06/11/2024 8:02 AM [facility] MCH 29.1 27.0 - 32.0 pcg LAB HEMETOLOGY METHOD 06/11/2024 8:02 AM [facility] MCHC 32.2 32.0 - 37.0 g/dL LAB HEMETOLOGY METHOD 06/11/2024 8:02 AM [facility] RDW 13.1 11.0 - 15.0 % LAB HEMETOLOGY METHOD 06/11/2024 8:02 AM [facility] Platelets 297 130 - 400 K/mcL LAB HEMETOLOGY METHOD 06/11/2024 8:02 AM [facility] MPV 10.5 7.0 - 11.0 FL LAB HEMETOLOGY METHOD 06/11/2024 8:02 AM [facility] NRBC 0.0 <1.0 % LAB HEMETOLOGY METHOD 06/11/2024 8:02 AM [facility] NRBC Absolute 0.00 <0.10 K/mcL LAB HEMETOLOGY METHOD 06/11/2024 8:02 AM [facility] Neutrophils Relative 79.4 % LAB HEMETOLOGY METHOD 06/11/2024 8:02 AM [facility] Comment:This is an appended report. These results have been appended to a previously preliminary verified report. Lymphocytes Relative 8.7 % LAB HEMETOLOGY METHOD 06/11/2024 8:02 AM [facility] Comment:This is an appended report. These results have been appended to a previously preliminary verified report. Monocytes Relative 10.4 % LAB HEMETOLOGY METHOD 06/11/2024 8:02 AM [facility] Comment:This is an appended report. These results have been appended to a previously preliminary verified report. Eosinophils Relative 0.1 % LAB HEMETOLOGY METHOD 06/11/2024 8:02 AM [facility] Comment:This is an appended report. These results have been appended to a previously preliminary verified report. Basophils Relative 0.2 % LAB HEMETOLOGY METHOD 06/11/2024 8:02 AM [facility] Comment:This is an appended report. These results have been appended to a previously preliminary verified report. Immature Granulocytes Relative 1.2 % LAB HEMETOLOGY METHOD 06/11/2024 8:02 AM [facility] Comment:This is an appended report. These results have been appended to a previously preliminary verified report. Neutrophils Absolute 12.36(H) 1.50 - 7.00 K/mcL LAB HEMETOLOGY METHOD 06/11/2024 8:02 AM [facility] Comment:This is an appended report. These results have been appended to a previously preliminary verified report. Lymphocytes Absolute 1.35 1.00 - 5.00 K/mcL LAB HEMETOLOGY METHOD 06/11/2024 8:02 AM [facility] Comment:This is an appended report. These results have been appended to a previously preliminary verified report. Monocytes Absolute 1.61(H) 0.20 - 1.00 K/mcL LAB HEMETOLOGY METHOD 06/11/2024 8:02 AM [facility] Comment:This is an appended report. These results have been appended to a previously preliminary verified report. Eosinophils Absolute 0.01 0.00 - 0.50 K/mcL LAB HEMETOLOGY METHOD 06/11/2024 8:02 AM EDT [facility] Comment:This is an appended report. These results have been appended to a previously preliminary verified report. Basophils Absolute 0.03 0.00 - 0.20 K/mcL [facility] 06/11/2024 8:02 AM EDT [facility] Comment:This is an appended report. These results have been appended to a previously preliminary verified report. Immature Granulocytes Absolute 0.19(H) 0.00 - 0.03 K/mcL LAB [facility] METHOD 06/11/2024 8:02 AM EDT [facility] Comment:This is an appended report. These results have been appended to a previously preliminary verified report. Blood Venous blood specimen / Unknown Venipuncture / Unknown 06/11/2024 6:41 AM EDT 06/11/2024 6:48 AM EDT Tamie RIZO [facility] BLOOD ORDERABLES Final Result Performing Organization Address City/[facility]/ZIP Co de Phone Number [facility] [address] [place] [address], * Magnesium (06/11/2024 6:41 AM EDT) Only the most recent of2 resultswithin the time period is included. Magnesium 2.4 1.9 - 2.6 mg/dL LAB CHEMISTRY METHOD 06/11/2024 7:18 AM EDT [facility] Blood Venous blood specimen / Unknown Venipuncture / Unknown 06/11/2024 6:41 AM EDT 06/11/2024 6:48 AM EDT Tamie RIZO LAB BLOOD ORDERABLES Final Result [facility] [address] [place] [address], * (ABNORMAL) Basic metabolic panel (06/11/2024 6:41 AM EDT) Only the most recent of4 resultswithin the time period is included. Sodium 139 133 - 145 mmol/L LAB CHEMISTRY METHOD 06/11/2024 7:18 AM EDT [facility] Potassium 3.6 3.5 - 5.5 mmol/L LAB CHEMISTRY METHOD 06/11/2024 7:18 AM [facility] Chloride 105 96 - 110 mmol/L LAB CHEMISTRY METHOD 06/11/2024 7:18 AM [facility] CO2 30 21 - 32 mmol/L LAB CHEMISTRY METHOD 06/11/2024 7:18 AM [facility] Anion Gap 4 3 - 11 LAB CHEMISTRY METHOD 06/11/2024 7:18 AM [facility] Glucose 109(H) 70 - 100 mg/dL LAB CHEMISTRY METHOD 06/11/2024 7:18 AM [facility] BUN 26(H) 5 - 25 mg/dL LAB CHEMISTRY METHOD 06/11/2024 7:18 AM [facility] Creatinine 0.62 0.50 - 1.10 mg/dL LAB CHEMISTRY METHOD 06/11[facility]2024 7[facility] eGFR 91 >=60 mL/min/1. 73m2 LAB CHEMISTRY METHOD 06/11/2024 7:18 AM [facility] Comment:Calculation based on the Chronic Kidney Disease Epidemiology Collaboration (CKD-EPI) equation refit without adjustment for race. BUN/Creatinine Ratio 41.9 LAB CHEMISTRY METHOD 06/11/2024 7:18 AM [facility] Calcium 9.2 8.5 - 10.5 mg/dL LAB CHEMISTRY METHOD 06/11/2024 7:18 AM [facility] Blood Venous blood specimen / Unknown Venipuncture / Unknown 06/11/2024 6:41 AM EDT 06/11/2024 6:48 AM EDT us Tamie RIZO LAB BLOOD ORDERABLES Final Result Performing Organization Address City/[facility]/ZIP Co de Phone Number [facility] [address] [place] [address], [place] [phone] * SST tube (06/09/2024 8:07 AM EDT) Extra Tube Hold for add-ons. 06/09/2024 10:01 AM EDT [facility] Comment:Auto resulted. Blood Venous blood specimen / Unknown 06/09/2024 8:07 AM EDT 06/09/2024 8:32 AM EDT us Rosenda Llanos MD LAB BLOOD ORDERABLES Final Resul t Performing Organization Address [facility] Co de Phone Number [facility] [address] [place] [address], [place] [phone] * Lavender tube (06/09/2024 8:07 AM EDT) Extra Tube Hold for add-ons. 06/09/2024 10:01 AM EDT [facility] Comment:Auto resulted. Blood Venous blood specimen / Unknown 06/09/2024 8:07 AM EDT 06/09/2024 8:34 AM EDT us Rosenda Llanos MD LAB BLOOD ORDERABLES Final Resul t Performing Organization Address City/[facility]/ZIP Co de Phone Number [facility] [address] [place] [address], [place] [phone] * Lactate (06/09/2024 8:07 AM EDT) Only the most recent of2 resultswithin the time period is included. [facility] Lactate 1.3 0.4 - 2.0 mmol/L LAB CHEMISTRY METHOD 06/09/2024 9:01 AM EDT [facility] Blood Venous blood specimen / Unknown Venipuncture / Unknown 06/09/2024 8:07 AM EDT 06/09/2024 8:30 AM EDT Tamie RIZO LAB BLOOD ORDERABLES Final Result Performing Organization Address [facility]/ZIP Co de Phone Number [facility] [address] [place] [address], [place] [phone] * ECG-Annotated (06/09/2024) Provider Onbase MD ECG ORDERABLES Final Result * (ABNORMAL) Troponin I high sensitivity (06/08/2024 9:56 PM EDT) Only the most recent of3 resultswithin the time period is included. [facility] High Sensitivity Troponin I 83(H) <=54 ng/L LAB CHEMISTRY METHOD 06/08/2024 10:54 PM EDT [facility] Blood Venous blood specimen / Unknown Venipuncture / Unknown 06/08/2024 9:56 PM EDT 06/08/2024 10:18 PM EDT Narrative [facility] - 06/08/2024 10:54 PM EDT High levels of biotin in samples may falsely decrease hsTroponin values. Use caution when interpreting hsTroponin results in patients taking biotin who exhibit renal impairment (eGFR <60) or in patients taking more than 20 mg/day of biotin. Js RIZO LAB BLOOD ORDERABLES Final Res ult Performing Organization Address [facility]/ZIP Co de Phone Number [facility] [address] [place] [address], [place] [phone] * Blood Culture, Peripheral Draw #2 (06/08/2024 6:24 PM EDT) Only the most recent of2 resultswithin the time period is included. [facility] Culture, Blood No growth at 5 days 06/13/2024 7:01 PM EDT [facility] Blood Venous blood specimen / Unknown Venipuncture / Unknown 06/08/2024 6:24 PM EDT 06/08/2024 6:44 PM EDT us Bev Escamilla DO LAB MICROBIOLOGY - GENERAL ORD ERABLES Final Result [facility] [address] [place] [address], [place] [phone] * Respiratory virus panel molecular study (06/08/2024 4:11 PM EDT) [facility] Adenovirus Detection by PCR Not Detected Not Detected LAB MICROBIOLOGY METHOD 06/08/2024 5:36 PM EDT [facility] Influenza A PCR Not Detected Not Detected LAB MICROBIOLOGY METHOD 06/08/2024 5:36 PM EDT [facility] Influenza B PCR Not Detected Not Detected LAB MICROBIOLOGY METHOD 06/08/2024 5:36 PM EDT [facility] Coronavirus 229E Not Detected Not Detected LAB MICROBIOLOGY METHOD 06/08/2024 5:36 PM EDT [facility] Coronavirus HKU1 Not Detected Not Detected LAB MICROBIOLOGY METHOD 06/08/2024 5:36 PM EDT [facility] Coronavirus OC43 Not Detected Not Detected LAB MICROBIOLOGY METHOD 06/08/2024 5:36 PM EDT [facility] Coronavirus NL63 Not Detected Not Detected LAB MICROBIOLOGY METHOD 06/08/2024 5:36 PM EDT [facility] Parainfluenza Virus 1 Not Detected Not Detected LAB MICROBIOLOGY METHOD 06/08/2024 5:36 PM EDT [facility] Parainfluenza Virus 2 Not Detected Not Detected LAB MICROBIOLOGY METHOD 06/08/2024 5:36 PM EDT [facility] Parainfluenza Virus 3 Not Detected Not Detected LAB MICROBIOLOGY METHOD 06/08/2024 5:36 PM EDT [facility] Parainfluenza Virus 4 Not Detected Not Detected LAB MICROBIOLOGY METHOD 06/08/2024 5:36 PM EDT [facility] RSV PCR Not Detected Not Detected LAB MICROBIOLOGY METHOD 06/08/2024 5:36 PM EDT [facility] Human Metapneumovirus A and B Not Detected Not Detected LAB MICROBIOLOGY METHOD 06/08/2024 5:36 PM EDT [facility] Rhinovirus/Entero virus Not Detected Not Detected LAB MICROBIOLOGY METHOD 06/08/2024 5:36 PM EDT [facility] Bordetella pertussis Not Detected Not Detected LAB MICROBIOLOGY METHOD 06/08/2024 5:36 PM EDT [facility] Bordetella parapertussis Not Detected Not Detected LAB MICROBIOLOGY METHOD 06/08/2024 5:36 PM EDT [facility] Mycoplasma pneumo by PCR Not Detected Not Detected LAB MICROBIOLOGY METHOD 06/08/2024 5:36 PM EDT [facility] Chlamydia pneumoniae Not Detected Not Detected LAB MICROBIOLOGY METHOD 06/08/2024 5:36 PM EDT [facility] SARS COV-2 Not Detected Not Detected LAB MICROBIOLOGY METHOD 06/08/2024 5:36 PM EDT [facility] Swab Both anterior nares / Unknown Non-blood Collection / Unknown 06/08/2024 4:11 PM EDT 06/08/2024 4:27 PM EDT [facility] - 06/08/2024 5:36 PM EDT Testing was performed using the [employer] Respiratory Pathogen PCR Assay. All results must be correlated with the clinical findings. Results should not be used as the sole basis for diagnosis. False Negative results may occur from the presence of sequence variants in the region targeted by the assay or the presence of inhibitors. Results may be affected by concurrent antiviral/antimicrobial therapy or levels of organisms that are below the limit of detection. us Bev Escamilla DO LAB MICROBIOLOGY - GENERAL ORD ERABLES Final Result [facility] ([facility]) [facility] [address] [place] [address], * XR Chest 1 View (06/08/2024 4:08 PM EDT) Anatomical Region Laterality Modality Body Radiographic Elba ging 06/08/2024 4:10 PM EDT Impressions 06/08/2024 4:15 PM EDT FINDINGS/IMPRESSION: Multifocal opacities particularly in the right midlung zone and lingula suggestive of infectious/inflammatory process. Possible trace effusion. No congestive heart failure. No acute osseous abnormality. -------- FINAL REPORT -------- Dictated By: Patricia Martínez Dictated Date: 06/08/2024 16:10 ET Assigned Physician: Patricia Martínez Reviewed and Electronically Signed By: Patricia Martínez Signed Date: 06/08/2024 16:15 ET Workstation ID: [id number] Transcribed By: Self Edit Transcribed Date: 06/08/2024 16:10 ET Narrative 06/08/2024 4:15 PM EDT XR CHEST 1 VIEW INDICATION: dyspnea TECHNIQUE: XR CHEST 1 VIEW COMPARISON: No priors available. Procedure Note Patricia Martínez MD - 06/08/2024 XR CHEST 1 VIEW INDICATION: dyspnea TECHNIQUE: XR CHEST 1 VIEW COMPARISON: No priors available. IMPRESSION: FINDINGS/IMPRESSION: Multifocal opacities particularly in the rightmidlung zone and lingula suggestive of infectious/inflammatory process.Possible trace effusion. No congestive heart failure. No acute osseousabnormality. -------- FINAL REPORT -------- Dictated By: Patricia Martínez Dictated Date: 06/08/2024 16:10 ET Assigned Physician: Patricia Martínez Reviewed and Electronically Signed By: Patricia Martínez Signed Date: 06/08/2024 16:15 ET Workstation ID: [id number] Transcribed By: Self Edit Transcribed Date: 06/08/2024 16:10 ET Bev Escamilla DO IMG XR PROCEDURES Final Result * (ABNORMAL) B-type natriuretic peptide (06/08/2024 3:55 PM EDT) BNP 128(H) <=100 pcg/mL LAB CHEMISTRY METHOD 06/08/2024 5:11 PM EDT [facility] Blood Venous blood specimen / Unknown Venipuncture / Unknown 06/08/2024 3:55 PM EDT 06/08/2024 4:29 PM EDT us Bev Escamilla DO LAB BLOOD ORDERABLES Final Res ult [facility] [address] [place] [address], [place] [phone] * ECG 12 lead (06/08/2024 3:47 PM EDT) Ventricular Rate ECG 73 BPM GEMUSE Atrial Rate 73 BPM GEMUSE P-R Interval 132 ms GEMUSE QRS Duration 94 ms GEMUSE Q-T Interval 410 ms GEMUSE QTc 451 ms GEMUSE P Wave Ayr 70 degrees GEMUSE R Ayr 37 degrees GEMUSE T Ayr 118 degrees GEMUSE ECG Interpretation Normal sinus rhythm Possible Left atrial enlargement ST and T wave abnormality, consider lateral ischemia Abnormal ECG When compared with ECG of 08-JUN-2024 15:46, (unconfirmed) ST more depressed Lateral leads Confirmed by BEV FARNSWORTH ([id number]) on 06/10/2024 6:56:02 AM GEMUSE 06/08/2024 3:47 PM EDT 06/10/2024 6:56 AM EDT us Bev Escamilla DO ECG ORDERABLES Final Result GEMUSE from Last 3 Months Insurance MEDICARE [facility] Advance Directives * No CPR/Do Not Intubate (Latest Code Status on File) Date Activated Date Inactivated Comments 06/08/2024 7:48 PM 06/11/2024 4:16 PM This code stat us was ascertained in the following way: Code status discussion: discussion with patient * Full Code - Default Date Activated Date Inactivated Comments 06/08/2024 5:57 PM 06/08/2024 7:48 PM This is order is used when code status has not been discussed with the patient, or code status is otherwise unknown/unconfirmed To update the patient's code status, place a code status order. Do not modify or discontinue any currently active code status orders. Care Teams Vending Machine Mechanic Relationship Specialty Start Date End Date Divya Alexander NP [address] [place] [id number] PCP - General Family Medicine 05/29/24
--- NOTE | 2024-09-01 12:12 | MHC.OFFVIS ---
Vital Signs 09/01/24 12:13 Height 5 ft Weight 106 lb BMI 20.7 BP 145/65 H Blood Pressure Location Lt brachial Position Sitting Pulse 61 Pulse Oximetry (%) 95 Oxygen Delivery Method Room Air Intake Visit Reasons: 6 mo f/u r/s 06/12/24 Intake Note: Patient follow up for abdominal bloating. Patient cc: swallowing difficulties on and off, poor appetite with weight lost and fatigue/tiredness. 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 Increase fiber and fluid intake. May take [id number] probiotics. Take fiber supplements in addition if she continues to have loose stools. May use senna on as-needed basis if no bowel movement for 2-3 days. Follow-up in 6 months. Patient will call our office if she will experience any GI concerning symptoms. She is agreeable to current plan of care and verbalizes understanding of instructions. She was given the opportunity to ask questions and all questions answered. ? Thank you for allowing me to participate in her care Orders Complete Blood Count no Diff 12/14/23 K21.9 TSH reflex Free T4 12/14/23 K59.00 Vitamin D 25-OH (D2 and D3) 12/14/23 E55.9 Comprehensive Met. Panel 12/14/23 K21.9 Changed Changed From levothyroxine PO Changed To levothyroxine 88 mcg PO DAILY 30 tabs 0RF Refilled docusate sodium 100 mg PO BEDTIME 90 caps 3RF K59.00 TODAY'S VISIT: Patient is here today for follow-up. Patient reports that for the most part she has been doing well. Was able to get in contact with her PCP and is following up with them. Patient is going through a lot of stress due to her medical conditions that she needs to have possible procedures for. Patient is unsure if she is going to be able to go back to work or not. Patient states that because of some of the stress she is having occasional nausea and epigastric pain. Currently she is moving her bowels without any issues. Her abdominal bloating have improved. Patient did change her diet and is feeling better. She is taking his stool softeners as well as the fiber supplement. Patient denies melena, hematochezia. Denies any dyspepsia, dysphagia or odynophagia. [facility] Medical History COPD (chronic obstructive pulmonary disease) Hypothyroid Social History Household Members: None Alcohol intake: never Patient Tobacco Use Status: Former Tobacco user Review of Systems Const Denies weight gain and Denies weight loss ENT Reports no additional complaints, Denies dysphagia and Denies odynophagia Card Reports no additional complaints Resp Reports no additional complaints GI Reports abdominal pain (Cramping), Denies belching, Denies melena, Reports bloating, Denies change in bowel habits, Reports constipation, Denies dysphagia, Denies excessive flatus, Denies dyspepsia, Denies heartburn, Denies diarrhea, Denies loose stools, Denies nausea, Denies odynophagia and Denies vomiting Musc Reports no additional complaints Neuro Reports no additional complaints Psych Reports no additional complaints Endo Reports no additional complaints Physical Exam Vital Signs: Last Vital Signs Pulse 61 09/01/24 12:13 BP 145/65 H 09/01/24 12:13 Pulse Ox 95 09/01/24 12:13 Oxygen Delivery Method Room Air 09/01/24 12:13 BMI result Body Mass Index 20.7 Const General: healthy appearing, no acute distress and well developed Nutritional Appearance: well nourished Orientation/consciousness: patient oriented x3 Resp Effort & Inspection: normal respiratory effort, able to speak in complete sentences, no tracheal deviation and symmetric chest movement Auscultation: clear to auscultation bilaterally Cardio Rate: regular rate GI Inspection: Yes normal to inspection and No distended Palpation (GI): Soft to palpation, not firm, nontender and No hepatosplenomegaly present Auscultation: normal bowel sounds General: Yes no CVA tenderness Back/Spine/Pelvis Back: no CVA tenderness Skin General skin exam: elasticity normal, turgor normal and dry skin Neuro General: patient oriented x3 Psych Appearance: grossly normal Mental Status: mental status grossly normal Assessment & Plan Assessment & Plan (1) Irritable bowel syndrome: Code(s): K58.9 - Irritable bowel syndrome, unspecified Qualifiers: Irritable bowel syndrome type: with both diarrhea and constipation Qualified Code(s): K58.2 - Mixed irritable bowel syndrome (2) Abdominal bloating: Code(s): R14.0 - Abdominal distension (gaseous) (3) Constipation: Code(s): K59.00 - Constipation, unspecified Qualifiers: Constipation type: slow transit constipation Qualified Code(s): K59.01 - Slow transit constipation (4) Diarrhea: Code(s): R19.7 - Diarrhea, unspecified Qualifiers: Diarrhea type: functional diarrhea Qualified Code(s): K59.1 - Functional diarrhea Plan Patient will continue current bowel management. Avoid dietary triggers and night and snacking. Staying upright for minimal 3 hours after meals discussed with patient. Patient will call our office if she will have any GI concerning symptoms. She will follow-up in 3 months, sooner on as needed basis. She is agreeable to this plan and verbalizes understanding of instructions. She was given the opportunity to ask questions and all questions answered. Thank you for allowing me to participate in her care Coding Level of Care Code Est Pt Level 3 (70892) Diagnoses Irritable bowel syndrome with both constipation and diarrhea K58.2 Irritable bowel syndrome type: with both diarrhea and constipation Abdominal bloating R14.0 Slow transit constipation K59.01 Constipation type: slow transit constipation Functional diarrhea K59.1 Diarrhea type: functional diarrhea Time Spent (min) 25 Comment 15 minutes spent with patient and additional 10 minutes spent reviewing her records
[2024-09-01 12:13] VITALS: BP 145/65; PULSE 61; O2SAT 95; BMI 20.7
== END 2024-09-01 12:40 | disposition home or self-care (01) ==
LOC: HO.HGI 12:09
PROVIDERS: PCP Registered Nurse; Visit Provider Nurse Practitioner Family
DX: K58.2 Mixed irritable bowel syndrome (principal); R14.0 Abdominal distension (gaseous); K59.01 Slow transit constipation; K59.1 Functional diarrhea
CPT/HCPCS: 99213

== ENCOUNTER → 2024-09-01 12:08 | Outpatient (BNVA) | payer MEDICARE, SELFPAY | PROVIDERS: PCP Registered Nurse; Visit Provider Nurse Practitioner Family | DX: K58.2 Mixed irritable bowel syndrome (principal); K59.01 Slow transit constipation; K59.1 Functional diarrhea; R14.0 Abdominal distension (gaseous) | CPT/HCPCS: 99212 ==

== ENCOUNTER 2024-11-28 11:08 | Outpatient (AMB) | payer MEDICARE, SELFPAY ==
--- NOTE | 2024-11-28 11:13 | MHC.OFFVIS ---
Vital Signs 11/28/24 11:21 Height 5 ft Weight 108 lb BMI 21.1 BP 104/58 L Blood Pressure Location Rt brachial Position Sitting Pulse 72 Pulse Source Pulse Oximeter Pulse Oximetry (%) 91 L Oxygen Delivery Method Room Air Intake Visit Reasons: 3 MO F/U Intake Note: ESTABLISHED PATIENT for mgmt of IBS Chief Complaint; Pt denies any new GI concerns or symptoms. 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 Avoid dietary triggers and night and snacking. Staying upright for minimal 3 hours after meals discussed with patient. Patient will call our office if she will have any GI concerning symptoms. She will follow-up in 3 months, sooner on as needed basis. She is agreeable to this plan and verbalizes understanding of instructions. She was given the opportunity to ask questions and all questions answered. TODAY'S VISIT: Patient is here today for follow-up. Patient reports that she has been doing better. She no longer is having any abdominal pain or discomfort. Patient states that she is not having any nausea, vomiting. Denies any dyspepsia, dysphagia or odynophagia. Reports that her bowels are moving better. Patient reports that she is taking fiber supplement, asking for refill. Patient denies any melena, hematochezia, unintentional weight loss or ribbon like stools. Patient reports that her appetite is fair. [facility] Medical History COPD (chronic obstructive pulmonary disease) Hypothyroid Social History Household Members: None Alcohol intake: never Patient Tobacco Use Status: Former Tobacco user Review of Systems Const Denies weight gain and Denies weight loss ENT Reports no additional complaints, Denies dysphagia and Denies odynophagia Card Reports no additional complaints Resp Reports no additional complaints GI Denies abdominal pain, Denies belching, Denies melena, Denies bloating, Denies change in bowel habits, Denies dysphagia, Denies excessive flatus, Denies dyspepsia, Denies heartburn, Denies diarrhea, Denies loose stools, Denies nausea, Denies odynophagia and Denies vomiting Musc Reports no additional complaints Neuro Reports no additional complaints Psych Reports no additional complaints Endo Reports no additional complaints Physical Exam Vital Signs: Last Vital Signs Pulse 72 11/28/24 11:21 BP 104/58 L 11/28/24 11:21 Pulse Ox 91 L 11/28/24 11:21 Oxygen Delivery Method Room Air 11/28/24 11:21 BMI result Body Mass Index 21.1 Const General: healthy appearing, no acute distress and well developed Nutritional Appearance: well nourished Orientation/consciousness: patient oriented x3 Resp Effort & Inspection: normal respiratory effort, able to speak in complete sentences, no tracheal deviation and symmetric chest movement Auscultation: clear to auscultation bilaterally Cardio Rate: regular rate GI Inspection: Yes normal to inspection and No distended Palpation (GI): Soft to palpation, not firm, nontender and No hepatosplenomegaly present Auscultation: normal bowel sounds General: Yes no CVA tenderness Back/Spine/Pelvis Back: no CVA tenderness Skin General skin exam: elasticity normal, turgor normal and dry skin Neuro General: patient oriented x3 Psych Appearance: grossly normal Mental Status: mental status grossly normal Assessment & Plan Assessment & Plan (1) Irritable bowel syndrome: Code(s): K58.9 - Irritable bowel syndrome, unspecified Qualifiers: Irritable bowel syndrome type: with both diarrhea and constipation Qualified Code(s): K58.2 - Mixed irritable bowel syndrome (2) Abdominal bloating: Code(s): R14.0 - Abdominal distension (gaseous) (3) Constipation: Code(s): K59.00 - Constipation, unspecified Qualifiers: Constipation type: slow transit constipation Qualified Code(s): K59.01 - Slow transit constipation (4) Diarrhea: Code(s): R19.7 - Diarrhea, unspecified Qualifiers: Diarrhea type: functional diarrhea Qualified Code(s): K59.1 - Functional diarrhea Plan Continue low FODMAP diet. Patient will continue taking fiber daily. Avoid dietary triggers and late night snacking. Increase fluid intake and activity to promote bowel motility. Follow-up in 1 year, sooner on as needed basis. She is agreeable to this plan and verbalizes understanding of instructions. She was given the opportunity to ask questions and all questions answered. Thank you for allowing me to participate in her care Medications: Changed From methylcellulose (laxative) 1,000 mg (2 x 500 mg) PO DAILY 90 tabs 0RF K59.00 - Constipation, unspecified To methylcellulose (laxative) (Citrucel) 1,000 mg (2 x 500 mg) PO DAILY 180 tabs 3RF K59.00 - Constipation, unspecified Coding Level of Care Code Est Pt Level 3 (13018) Diagnoses Irritable bowel syndrome with both constipation and diarrhea K58.2 Irritable bowel syndrome type: with both diarrhea and constipation Abdominal bloating R14.0 Slow transit constipation K59.01 Constipation type: slow transit constipation Functional diarrhea K59.1 Diarrhea type: functional diarrhea Time Spent (min) 30 Comment 20 minutes spent with patient and additional 10 minutes spent reviewing her records
[2024-11-28 11:21] VITALS: BP 104/58; PULSE 72; O2SAT 91; BMI 21.1
== END 2024-11-28 11:39 | disposition home or self-care (01) ==
LOC: HO.HGI 11:09
PROVIDERS: Visit Provider Nurse Practitioner Family
DX: K58.2 Mixed irritable bowel syndrome (principal); R14.0 Abdominal distension (gaseous); K59.01 Slow transit constipation; K59.1 Functional diarrhea
CPT/HCPCS: 99213

== ENCOUNTER → 2024-11-28 11:08 | Outpatient (BNVA) | payer MEDICARE, SELFPAY | PROVIDERS: Visit Provider Nurse Practitioner Family | DX: K58.2 Mixed irritable bowel syndrome (principal); R14.0 Abdominal distension (gaseous); K59.01 Slow transit constipation; K59.1 Functional diarrhea | CPT/HCPCS: 99212 ==